=== PATIENT | male | born 1935 | race Caucasian/White ===

== ENCOUNTER 2019-09-16 08:25 | Emergency (ER) | payer MEDICARE, BC ==
[2019-09-16] MEDS ORDERED: Diltiazem 25 MG/5 ML SDV IVPUSH ONE (09:01)
[2019-09-16] MEDS ORDERED: Sodium Chloride 0.9% 1,000 ML IV ONE (09:02)
--- NOTE | 2019-09-16 17:13 | ER ---
HISTORY OF PRESENT ILLNESS: An 84-year-old male here with complaints of atrial fibrillation. He feels it started about 6 a.m. this morning. He can feel his heart racing and beating funny. The patient denies any problems with shortness of breath. He states he has been a little bit dizzy, but that has been going on for a couple of weeks and that is only with positional changes. The patient states he has had atrial fibrillation for many years. He usually takes Rythmol 300 mg t.i.d. and this has done a good job of holding him. The patient recently underwent surgery for right knee replacement a couple of weeks ago. He feels that things are going well in this area. He is not having any problems with increase of pain, fever, or redness. OBJECTIVE: GENERAL APPEARANCE: The patient is awake and alert, in no obvious distress. VITAL SIGNS: Reviewed. Initial pulse ranges from the 120s to the 140s. He is afebrile. Blood pressure 128/75, O2 sats 97%, respirations 16. HEENT: Oral mucous membranes are slightly dry. Tonsils are not enlarged or injected. Pharynx not inflamed. NECK: Supple. LUNGS: Clear. CARDIAC: Heart sounds distinct with a slightly irregular rate that is over 100 and slightly variable. SKIN: Warm and dry. INITIAL TREATMENT: An IV was started. The patient was given 500 mL of normal saline in bolus and then we reduced it down to about 100 per hour. He was given Cardizem 20 mg IV which did bring his pulse down and it was not long and he converted to normal sinus rhythm with pulse in the upper 90s. LABORATORY DATA: Labs include a CBC and basic metabolic panel, they are normal. At this point, the patient is feeling fine and has no further questions. DIAGNOSIS: Atrial fibrillation with history of the same. TREATMENT PLAN: The patient will be discharged home. He is to continue on his current medications. I did advise the patient to increase his water intake. I feel this is probably the cause of his current episode of AFib being just slightly dry. The patient agrees with the treatment plan and has no further questions. CRS/MODL /[id number]
== END 2019-09-16 10:20 | disposition home or self-care (01) ==
LOC: LB.ED 08:25
DX: I48.91 Unspecified atrial fibrillation (principal)
CPT/HCPCS: 36415; 80048; 85025; 93005; 96361; 96374; 99284; J3490; J7030

== ENCOUNTER 2020-08-08 07:07 | Inpatient (IN) | payer MEDICARE, BC ==
[2020-08-08] MEDS ORDERED: Ondansetron 4 MG/2 ML SDV IVPUSH ONE (07:37)
--- NOTE | 2020-08-08 07:38 | EDM.PDOC ---
ED HPI GENERAL MEDICAL PROBLEM - General Chief Complaint: Neurological Problem Stated Complaint: Unresponsive/Possible Stroke Time Seen by Provider: 08/08/20 07:15 Source of Information: Reports: Patient, EMS History Limitations: Reports: No Limitations - History of Present Illness INITIAL COMMENTS - FREE TEXT/NARRATIVE: patient was brought to the ER by EMS due to concerns for a stroke. He reports that he woke up this morning, and tried to clear his stuffy nose. Once he blow out his nose, he suddenly felt dizzy, ground is spinning and couldn't keep his eyes open. Had to lay down. No CP or palpitations. No weakness or numbness. He called his son who lives next door, who in return called 911. Upon arrival of the EMS to the scene, patient was alert and oriented, but c/o dizziness and nausea. no h/o stroke in the past. No speech problems. Onset: Sudden Duration: Hour(s): (1) - Related Data Home Meds: Home Meds Aspirin [Aspirin EC] 325 mg PO DAILY 08/08/20 [History] Docusate Sodium [Stool Softener] 50 mg PO DAILY 08/08/20 [History] Propafenone HCl 300 mg PO DAILY 08/08/20 [History] Sennosides/Docusate Sodium [Senna Plus 8.6-50 mg Tablet] 1 each PO DAILY PRN 08/08/20 [History] amLODIPine [Norvasc] 5 mg PO DAILY 08/08/20 [History] atorvaSTATin [Lipitor] 40 mg PO DAILY 08/08/20 [History] glyBURIDE/Metformin HCl [Glyburid-Metformin 1.25-250 mg] 1 each PO DAILY 08/08/20 [History] traMADol HCl [Tramadol HCl] 50 mg PO TID PRN 08/08/20 [History] Past Medical History HEENT History: Reports: Hard of Hearing Cardiovascular History: Reports: Afib, High Cholesterol, Stents Genitourinary History: Reports: Other (See Below) Other Genitourinary History: states that his "flow is slow" and that he has to get up at night Musculoskeletal History: Reports: Osteoarthritis Other Musculoskeletal History: recent knee replacement Other Endocrine/Metabolic History: takes metformin Dermatologic History: Reports: Other (See Below) Other Dermatologic History: Hx of basal cell carcinoma - Past Surgical History Other HEENT Surgeries/Procedures: hx of fluid in his ears saw a provider in [place] 3 yrs ago Social & Family History - Caffeine Use Caffeine Use: Reports: Coffee Caffeine Use Comment: 1 cup daily ED ROS GENERAL - Review of Systems Review Of Systems: See Below Constitutional: Reports: No Symptoms HEENT: Reports: Vertigo Respiratory: Reports: No Symptoms Cardiovascular: Reports: No Symptoms GI/Abdominal: Reports: Nausea Musculoskeletal: Reports: No Symptoms Skin: Reports: No Symptoms Neurological: Reports: Dizziness Immunologic: Reports: No Symptoms ED EXAM, NEURO - Physical Exam Exam: See Below Exam Limited By: No Limitations General Appearance: Alert, WD/WN, No Apparent Distress Eye Exam: Bilateral Eye: EOMI, PERRL Head Exam: Atraumatic, Normocephalic Respiratory/Chest: No Respiratory Distress, Lungs Clear Cardiovascular: Normal Peripheral Pulses GI/Abdominal: Normal Bowel Sounds, Soft Neurological: Alert, Normal Mood/Affect, Normal Dorsiflexion, No Motor/Sensory Deficits, Oriented x 3 Back Exam: Normal Inspection Extremities: Normal Inspection Psychiatric: Normal Affect, Normal Mood Skin Exam: Dry, No Rash #1 Interpretation EKG Date: 08/08/20 Rhythm: NSR [place]: Normal P-Wave: Present QRS: Normal ST-T: Normal QT: Normal Course - Vital Signs Last Recorded V/S: Last Vital Signs Temp 36.7 C 08/08/20 07:30 Pulse 77 08/08/20 11:51 Resp 20 08/08/20 11:51 BP 138/70 08/08/20 11:48 Pulse Ox 98 08/08/20 11:51 - Orders/Labs/Meds Orders: Active Orders 24 hr Category Date Time Status EKG Documentation Completion [RC] ASDIRECTED Care 08/08/20 07:32 Active PT Evaluation and Treatment [CONS] Routine Cons 08/08/20 11:18 Active Iodixanol [Visipaque 320] Med 08/08/20 10:00 Active 100 ml IV ASDIRECTED Sodium Chloride 0.9% [Normal Saline] 1,000 ml Med 08/08/20 07:45 Active IV ASDIRECTED Medication Orders Sodium Chloride (Normal Saline) 1,000 mls @ 999 mls/hr IV ASDIRECTED KARLA Last Admin: 08/08/20 08:20 Dose: 999 mls/hr Documented by: SHYAM Iodixanol (Iodixanol 652 Mg/Ml 100 Ml Bottle) 100 ml IV ASDIRECTED KARLA Stop: 08/08/20 23:59 Labs: Laboratory Tests 08/08/20 08/08/20 08/08/20 Range/Units 07:25 07:31 07:31 WBC 9.6 D (4.0-11.0) K/uL RBC 4.37 L (4.50-6.50) M/uL Hgb 15.0 (13.0-18.0) g/dL Hct 42.7 (40.0-54.0) % MCV 98 H (76-96) fL MCH 34.3 H (27.0-32.0) pg MCHC 35.1 H (31.0-35.0) g/dL RDW 13.5 (11.0-16.0) % Plt Count 261 D (150-400) K/uL MPV 10.6 H (6.0-10.0) fL PT 11.0 (9.0-11.5) sec INR 1.1 (1.0-3.5) Sodium (136-145) mmol/L Potassium (3.5-5.1) mmol/L Chloride (98-107) mmol/L Carbon Dioxide (21.0-32.0) mmol/L Anion Gap (5.0-15.0) mmol/L BUN (8-26) mg/dL Creatinine (0.70-1.30) mg/dL Est Cr Clr Drug Dosing Estimated GFR (MDRD) (>60) MLS/MIN BUN/Creatinine Ratio (6-25) Glucose (74-100) mg/dL POC Glucose 190 H (74-110) mg/dL Calcium (8.5-10.1) mg/dL Troponin I (0.000-0.060) ng/mL Urine Color Urine Appearance (CLEAR) Urine pH (5.0-8.0) Ur Specific [place] (1.003-1.030) Urine Protein (NEGATIVE) mg/dL Urine Glucose (UA) (NEGATIVE) mg/dL Urine Ketones (NEGATIVE) mg/dL Urine Occult Blood (NEGATIVE) Urine Nitrite (NEGATIVE) Urine Bilirubin (NEGATIVE) Urine Urobilinogen (0.2-1.0) E.U./dL Ur Leukocyte Esterase (NEGATIVE) Urine RBC /HPF Urine WBC /HPF Ur Epithelial Cells /HPF 08/08/20 08/08/20 Range/Units 07:31 07:50 WBC (4.0-11.0) K/uL RBC (4.50-6.50) M/uL Hgb (13.0-18.0) g/dL Hct (40.0-54.0) % MCV (76-96) fL MCH (27.0-32.0) pg MCHC (31.0-35.0) g/dL RDW (11.0-16.0) % Plt Count (150-400) K/uL MPV (6.0-10.0) fL PT (9.0-11.5) sec INR (1.0-3.5) Sodium 145 (136-145) mmol/L Potassium 4.2 (3.5-5.1) mmol/L Chloride 109 H (98-107) mmol/L Carbon Dioxide 23.9 (21.0-32.0) mmol/L Anion Gap 16.3 H (5.0-15.0) mmol/L BUN 17 (8-26) mg/dL Creatinine 1.24 (0.70-1.30) mg/dL Est Cr Clr Drug Dosing TNP Estimated GFR (MDRD) 56 L (>60) MLS/MIN BUN/Creatinine Ratio 13.7 (6-25) Glucose 187 H (74-100) mg/dL POC Glucose (74-110) mg/dL Calcium 8.8 (8.5-10.1) mg/dL Troponin I < 0.017 (0.000-0.060) ng/mL Urine Color Yellow Urine Appearance Clear (CLEAR) Urine pH 5.5 (5.0-8.0) Ur Specific [place] 1.025 (1.003-1.030) Urine Protein Negative (NEGATIVE) mg/dL Urine Glucose (UA) Negative (NEGATIVE) mg/dL Urine Ketones Negative (NEGATIVE) mg/dL Urine Occult Blood Trace-intact H (NEGATIVE) Urine Nitrite Negative (NEGATIVE) Urine Bilirubin Negative (NEGATIVE) Urine Urobilinogen 0.2 (0.2-1.0) E.U./dL Ur Leukocyte Esterase Negative (NEGATIVE) Urine RBC 0-5 H /HPF Urine WBC Not seen /HPF Ur Epithelial Cells Few /HPF Meds: Medications Generic Name Dose Route Start Last Admin Trade Name Goldy PRN Reason Stop Dose Admin Sodium Chloride 1,000 mls @ 999 mls/hr 08/08/20 07:45 08/08/20 08:20 Normal Saline IV 999 mls/hr ASDIRECTED KARLA Administration Iodixanol 100 ml 08/08/20 10:00 Iodixanol 652 Mg/Ml 100 Ml Bottle IV 08/08/20 23:59 ASDIRECTED KARLA Discontinued Medications Generic Name Dose Route Start Last Admin Trade Name Goldy PRN Reason Stop Dose Admin Aspirin 325 mg 08/08/20 08:55 08/08/20 11:38 Aspirin 325 Mg Tab.Ec PO 08/08/20 08:56 325 mg ONETIME ONE Administration Diphenhydramine HCl 50 mg 08/08/20 09:09 08/08/20 09:18 Diphenhydramine 50 Mg/Ml Sdv IVPUSH 08/08/20 09:10 50 mg ONETIME ONE Administration Diphenhydramine HCl Confirm 08/08/20 09:23 Diphenhydramine 50 Mg/Ml Sdv Administered 08/08/20 09:24 Dose 50 mg .ROUTE .STK-MED ONE Iodixanol 100 ml 08/08/20 09:00 08/08/20 08:53 Iodixanol 652 Mg/Ml 100 Ml Bottle IV 100 ml . DIRECTED KARLA Administration Lorazepam 0.5 mg 08/08/20 09:09 08/08/20 09:18 Lorazepam 2 Mg/Ml Sdv IVPUSH 08/08/20 09:10 0.5 mg ONETIME ONE Administration Lorazepam Confirm 08/08/20 09:23 Lorazepam 2 Mg/Ml Sdv Administered 08/08/20 09:24 Dose 2 mg .ROUTE .STK-MED ONE Meclizine HCl 25 mg 08/08/20 07:47 08/08/20 08:24 Meclizine 25 Mg Tab.Chew PO 08/08/20 07:48 25 mg NOW STA Administration Meclizine HCl Confirm 08/08/20 08:32 Meclizine 25 Mg Tab.Chew Administered 08/08/20 08:33 Dose 25 mg .ROUTE .STK-MED ONE Meclizine HCl 25 mg 08/08/20 11:17 08/08/20 11:37 Meclizine 25 Mg Tab.Chew PO 08/08/20 11:18 25 mg NOW STA Administration Meclizine HCl Confirm 08/08/20 11:25 Meclizine 25 Mg Tab.Chew Administered 08/08/20 11:26 Dose 25 mg .ROUTE .STK-MED ONE Ondansetron HCl 4 mg 08/08/20 07:37 08/08/20 07:47 Ondansetron 4 Mg/2 Ml Sdv IVPUSH 08/08/20 07:38 4 mg ONETIME ONE Administration Sodium Chloride 50 ml 08/08/20 08:51 08/08/20 08:53 Sodium Chloride 0.9% 50 Ml Sdv FLUSH 08/08/20 08:52 50 ml ONETIME ONE Administration - Re-Assessments/Exams Free Text/Narrative Re-Assessment/Exam: vitals WNL.. clinical exam - shows no motor or sensory deficit. motor strength 5/5,, no speech or vision problems. CT head w/wo contrast was done -- no e/o stroke or bleeding. symptoms are possibly vestibular in origin - was given meclizine 5mg, as well as, Ativan and Benadryl. Reports improvement in symptoms and no more dizzy when lying still, but still re experience the symptoms when turn his face sideways. discussed the case with the stroke neurologist in [place] - Dr. Ferreira - who didn't think his symptoms are stroke, more likely vestibular. Recommended to treat the patient symptomatically, start blood thinners and in- house PT. Also will arrange for an MRI during the admission. Departure - Departure Time of Disposition: 12:33 Disposition: Admitted As Inpatient 66 Condition: Good Clinical Impression: Dizziness, Vertigo - Discharge Information *PRESCRIPTION DRUG MONITORING PROGRAM REVIEWED*: Not Applicable *COPY OF PRESCRIPTION DRUG MONITORING REPORT IN PATIENT HILARIO: Not Applicable Forms: ED Department Discharge Sepsis Event Note (ED) - Focused Exam Vital Signs: Vital Signs Temp Pulse Resp BP Pulse Ox 08/08/20 11:51 77 20 98 08/08/20 11:48 72 18 138/70 97 08/08/20 08:36 62 16 148/76 H 95 08/08/20 07:30 36.7 C 64 20 156/78 H 99 - Problem List & Annotations (1) Dizziness SNOMED Code(s): 234188839, 865342107 Code(s): R42 - DIZZINESS AND GIDDINESS Status: Acute Priority: Medium Current Visit: Yes (2) Vertigo SNOMED Code(s): 498375480 Code(s): R42 - DIZZINESS AND GIDDINESS Status: Acute Priority: Medium Current Visit: Yes - Problem List Review Problem List Initiated/Reviewed/Updated: Yes - My Orders Last 24 Hours: My Active Orders 08/08/20 07:32 EKG Documentation Completion [RC] ASDIRECTED 08/08/20 07:45 Sodium Chloride 0.9% [Normal Saline] 1,000 ml IV ASDIRECTED 08/08/20 10:00 Iodixanol [Visipaque 320] 100 ml IV ASDIRECTED 08/08/20 11:18 PT Evaluation and Treatment [CONS] Routine - Assessment/Plan Last 24 Hours: My Active Orders 08/08/20 07:32 EKG Documentation Completion [RC] ASDIRECTED 08/08/20 07:45 Sodium Chloride 0.9% [Normal Saline] 1,000 ml IV ASDIRECTED 08/08/20 10:00 Iodixanol [Visipaque 320] 100 ml IV ASDIRECTED 08/08/20 11:18 PT Evaluation and Treatment [CONS] Routine Plan: - admission to IP: h/o HRN and Afib - controlled. not on blood thinners. 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
[2020-08-08] MEDS ORDERED: Sodium Chloride 0.9% 1,000 ML IV SCH (07:45)
--- NOTE | 2020-08-08 08:45 | CT ---
DATE OF SERVICE: 08/08/2020 CLINICAL DATA: Dizziness Unenhanced and enhanced brain CT: Multi slice acquisition without and with IV contrast was performed. No priors. There is diffuse atrophy. There are periventricular lucencies bilaterally consistent with small vessel ischemic change. No masses or mass effect. No intracranial hemorrhage. No evidence of acute or subacute infarct. No osseous abnormalities. Impression: No acute intracranial abnormalities MTDD
[2020-08-08] MEDS ORDERED: Sodium Chloride 0.9% 50 ML SDV FLUSH ONE (08:51)
[2020-08-08] MEDS: Aspirin 325 MG Tab.EC PO ONE ×2 (08:55→11:38)
[2020-08-08] MEDS ORDERED: Iodixanol 652 MG/ML 100 ML Bottle IV SCH ×2 (09:00→10:00)
[2020-08-08] MEDS ORDERED: diphenhydrAMINE 50 MG/ML SDV IVPUSH ONE (09:09)
[2020-08-08] MEDS ORDERED: LORazepam 2 MG/ML SDV IVPUSH ONE (09:09)
[2020-08-08] MEDS ORDERED: LORazepam 2 MG/ML SDV ONE (09:23)
[2020-08-08] MEDS ORDERED: diphenhydrAMINE 50 MG/ML SDV ONE (09:23)
[2020-08-08] MEDS ORDERED: Ondansetron 4 MG/2 ML SDV ONE (14:38)
[2020-08-08] MEDS: Ondansetron 4 MG Tab.DIS PO PRN ×2 (14:40→22:39)
[2020-08-08] MEDS: amLODIPine 5 MG Tab PO SCH (14:56)
[2020-08-08] MEDS: Apixaban 5 MG Tab PO SCH ×2 (14:57→20:02)
[2020-08-08] MEDS: PROPAFENONE HCL 300 MG PO SCH (14:58)
[2020-08-08] MEDS: Metoprolol Tartrate 25 MG Tab PO SCH ×2 (16:08→19:18)
[2020-08-08] MEDS ORDERED: GI Cocktail Oral Solution 30 ML PO ONE (16:43)
[2020-08-08] MEDS ORDERED: Metoprolol Tartrate 5 MG/5 ML SDV IVPUSH ONE (17:41)
[2020-08-08] MEDS: atorvaSTATin 40 MG Tab PO SCH (17:46)
[2020-08-08] MEDS ORDERED: Diltiazem 25 MG/5 ML SDV IVPUSH ONE ×2 (19:51→21:16)
[2020-08-08] MEDS: Sodium Chloride 0.9% 1,000 ML IV SCH (21:54)
[2020-08-08] MEDS: Diltiazem 100 MG in Sodium Chloride 0.9% 100 ML IV SCH (22:32)
[2020-08-09] MEDS: Ondansetron 4 MG Tab.DIS PO PRN (04:25)
[2020-08-09] MEDS: Sodium Chloride 0.9% 1,000 ML IV SCH ×2 (04:25→12:05)
[2020-08-09] MEDS: Diltiazem 100 MG in Sodium Chloride 0.9% 100 ML IV SCH (06:26)
[2020-08-09] MEDS ORDERED: Aspirin 81 MG Tab.EC PO SCH (08:00)
[2020-08-09] MEDS ORDERED: Pantoprazole 40 MG Vial IVPUSH SCH (08:00)
[2020-08-09] MEDS ORDERED: DOCUSATE SODIUM 50 MG PO SCH (08:00)
[2020-08-09] MEDS: metFORMIN 500 MG Tab PO SCH (08:06)
[2020-08-09] MEDS: glyBURIDE 5 MG Tab PO SCH (08:08)
[2020-08-09] MEDS: PROPAFENONE HCL 300 MG PO SCH (08:09)
[2020-08-09] MEDS: atorvaSTATin 40 MG Tab PO SCH ×3 (08:10→20:51)
[2020-08-09] MEDS: Aspirin 81 MG Tab.EC PO SCH ×3 (08:10→20:50)
[2020-08-09] MEDS: Docusate Sodium 100 MG Cap PO SCH ×2 (08:10→08:31)
[2020-08-09] MEDS: Apixaban 5 MG Tab PO SCH ×2 (08:10→20:51)
[2020-08-09] MEDS: amLODIPine 5 MG Tab PO SCH (08:10)
[2020-08-09] MEDS: Metoprolol Tartrate 25 MG Tab PO SCH (08:11)
[2020-08-09] MEDS ORDERED: Metoprolol Tartrate 25 MG Tab PO SCH (09:00)
--- NOTE | 2020-08-09 09:03 | PCM.HP.2 ---
H&P History of Present Illness - General Date of Service: 08/09/20 Admit Problem/Dx: Admission Diagnosis/Problem Admission Diagnosis/Problem Dizziness Source of Information: Patient History Limitations: Reports: No Limitations - History of Present Illness Initial Comments - Free Text/Narative: patient was admitted from the ER to the floor due to concerns for severe dizziness and severe nausea. He reports that he woke up this morning, and tried to clear his stuffy nose. Once he blow out his nose, he suddenly felt dizzy, ground is spinning and couldn't keep his eyes open. Had to lay down. No CP or palpitations. No weakness or numbness. He called his son who lives next door, who in return called 911. Upon arrival of the EMS to the scene, patient was alert and oriented, but c/o dizziness and nausea. no h/o stroke in the past. In the ER, he underwent CT head w/wo contrast - no e/o acute ischemia. EKG initially showed NSR - thou patient has a h/o afib for which he is on rate and rhythm control medications but no anti coagulation. His baseline is complete independence at home where he can move around without problems but today, he is unable to move around or even get out of the bed due to dizziness. labs were ordered - no significant findings. IVF was given, discussed the case with the stroke neurologist call center dispatcher - who didn't think it is a CVA given the normal CT findings - but recommended to start blood thinners due to h/o afib and to arrange for an MRI head. Patient was admitted to the floor due to high risk of fall and to start therapy. - Related Data Allergies/Adverse Reactions: Allergies Allergy/AdvReac Type Severity Reaction Status Date / Time No Known Allergies Allergy Verified 08/08/20 14:32 Home Medications: Home Meds Aspirin [Halfprin] 81 mg PO BID 08/08/20 [History] Docusate Sodium [Stool Softener] 50 mg PO DAILY 08/08/20 [History] Metoprolol Tartrate 25 mg PO BID 08/08/20 [History] Propafenone HCl 300 mg PO TID 08/08/20 [History] amLODIPine [Norvasc] 5 mg PO DAILY 08/08/20 [History] atorvaSTATin [Lipitor] 40 mg PO DAILY 08/08/20 [History] glyBURIDE/Metformin HCl [Glyburid-Metformin 1.25-250 mg] 1 each PO DAILY 08/08/20 [History] traMADol HCl [Tramadol HCl] 50 mg PO TID PRN 08/08/20 [History] Past Medical History HEENT History: Reports: Hard of Hearing Cardiovascular History: Reports: Afib, High Cholesterol, Stents Genitourinary History: Reports: Other (See Below) Other Genitourinary History: states that his "flow is slow" and that he has to get up at night Musculoskeletal History: Reports: Osteoarthritis Other Musculoskeletal History: recent knee replacement Other Endocrine/Metabolic History: takes metformin Dermatologic History: Reports: Other (See Below) Other Dermatologic History: Hx of basal cell carcinoma - Past Surgical History Other HEENT Surgeries/Procedures: hx of fluid in his ears saw a provider in [place] 3 yrs ago Social & Family History - Tobacco Use Tobacco Use Status *Q: Never Tobacco User - Caffeine Use Caffeine Use: Reports: Coffee Caffeine Use Comment: 1 cup daily H&P Review of Systems - Review of Systems: Review Of Systems: See Below General: Reports: No Symptoms HEENT: Reports: No Symptoms Pulmonary: Reports: No Symptoms Cardiovascular: Reports: No Symptoms Gastrointestinal: Reports: Nausea Genitourinary: Reports: No Symptoms Musculoskeletal: Reports: No Symptoms Skin: Reports: No Symptoms Psychiatric: Reports: No Symptoms Neurological: Reports: Dizziness Exam - Exam Exam: See Below - Vital Signs Vital Signs: Last Vital Signs Temp 37.1 C 08/09/20 06:48 Pulse 77 08/09/20 08:11 Resp 16 08/09/20 05:08 BP 120/57 L 08/09/20 08:11 Pulse Ox 95 08/09/20 04:00 Weight: 88.904 kg - Exam General: Alert, Oriented, Cooperative HEENT: PERRLA, Conjunctiva Clear Neck: Supple Lungs: Clear to Auscultation, Normal Respiratory Effort Cardiovascular: Irregular Rhythm, Tachycardia GI/Abdominal Exam: Normal Bowel Sounds, Soft, Non-Tender Back Exam: Full Range of Motion Extremities: Normal Inspection, Normal Range of Motion Neurological: Cranial Nerves Intact, Strength Equal Bilateral, Normal Speech, Sensation Intact. No: Focal Deficit Neuro Extensive - Mental Status: Alert, Oriented x3, Normal Mood/Affect, Normal Cognition, Memory Intact Neuro Extensive - Motor, Sensory, Reflexes: No: Dysarthria, Facial Palsy w Forehead, Pronator Drift (R), Pronator Drift (L) Psychiatric: Alert, Normal Affect, Normal Mood - Patient Data Lab Results Last 24 hrs: Laboratory Results - last 24 hr 08/08/20 Range/Units 15:02 SARS-CoV-2 RNA (GREY) Negative (NEGATIVE) Result Diagrams: 08/09/20 09:13 08/09/20 09:13 #1 Interpretation EKG Date: 08/08/20 Rhythm: A-Fib [place]: Normal P-Wave: Absent QRS: Normal ST-T: Normal QT: Normal Sepsis Event Note - Evaluation Sepsis Screening Result: No Definite Risk - Focused Exam Vital Signs: Vital Signs Temp Pulse Pulse Resp BP BP BP 08/09/20 08:11 77 120/57 L 08/09/20 08:10 120/57 L 08/09/20 06:48 37.1 C 99 120/70 08/09/20 05:08 89 16 116/57 L 08/09/20 04:00 96 16 127/63 08/09/20 03:31 93 18 128/64 08/09/20 02:30 110 H 18 140/83 08/09/20 01:30 99 129/77 08/09/20 00:39 114 H 16 120/70 Pulse Ox 08/09/20 08:11 08/09/20 08:10 08/09/20 06:48 08/09/20 05:08 08/09/20 04:00 95 08/09/20 03:31 96 08/09/20 02:30 98 08/09/20 01:30 08/09/20 00:39 - Problem List (1) Dizziness SNOMED Code(s): 613304461, 076723150 ICD Code: R42 - DIZZINESS AND GIDDINESS Status: Acute Priority: Medium Current Visit: Yes (2) Afib SNOMED Code(s): 80229929 ICD Code: I48.91 - UNSPECIFIED ATRIAL FIBRILLATION Status: Acute Priority: Low Current Visit: Yes Qualifiers: Atrial fibrillation type: paroxysmal Qualified Code(s): I48.0 - Paroxysmal atrial fibrillation Problem List Initiated/Reviewed/Updated: Yes Orders Last 24hrs: Active Orders 24 hr Category Date Time Status Admission Diagnosis [ADT] Stat ADT 08/08/20 12:37 Active Admission Status [Patient Status] [ADT] Routine ADT 08/08/20 12:37 Active Cardiac Monitoring [RC] .As Directed Care 08/08/20 17:45 Active Intake and Output Strict [RC] Care 08/09/20 03:21 Active Oxygen Therapy [RC] PRN Care 08/08/20 12:57 Active Up With Assistance [RC] ASDIRECTED Care 08/08/20 12:57 Active Urinary Catheter Assessment [RC] Care 08/08/20 12:57 Active VTE/DVT Education [RC] Per Unit Routine Care 08/08/20 12:57 Active Vital Signs [RC] Q4H Care 08/08/20 12:57 Active PT Evaluation and Treatment [CONS] Routine Cons 08/08/20 11:18 Active Regular Diet [DIET] Diet 08/08/20 Dinner Ordered CBC W/O DIFF,HEMOGRAM [HEME] Routine Lab 08/09/20 09:00 Ordered COMPREHENSIVE METABOLIC PN,CMP [CHEM] Routine Lab 08/09/20 09:00 Ordered CULTURE MRSA SURVEY [RM] Routine Lab 08/08/20 14:11 Received LIPASE [CHEM] Routine Lab 08/09/20 09:00 Ordered TROPONIN I [CHEM] Routine Lab 08/09/20 09:00 Ordered Apixaban [Eliquis] Med 08/08/20 13:00 Active 5 mg PO BID Aspirin [Halfprin] Med 08/09/20 20:00 Ordered 81 mg PO BID Diltiazem [Cardizem] 100 mg Med 08/08/20 22:00 Active Sodium Chloride 0.9% [Normal Saline] 100 ml IV TITRATE Docusate Sodium [Colace] Med 08/09/20 08:00 Active 100 mg PO DAILY Docusate Sodium/Sennosides [Senna Plus] Med 08/08/20 13:01 Active 1 tab PO DAILY PRN Meclizine [Antivert] Med 08/08/20 17:00 Active 25 mg PO TID Metoprolol Tartrate [Lopressor] Med 08/09/20 09:00 Ordered 50 mg PO BID Ondansetron [Zofran ODT] Med 08/08/20 14:34 Active 4 mg PO Q6H PRN Prochlorperazine [Compazine] Med 08/09/20 08:58 Ordered 10 mg PO Q6H PRN Propafenone HCl [Propafenone HCl] Med 08/08/20 13:15 Active 300 mg PO DAILY Sodium Chloride 0.9% [Normal Saline] 1,000 ml Med 08/08/20 22:00 Active IV ASDIRECTED amLODIPine [Norvasc] Med 08/08/20 13:15 Active 5 mg PO DAILY atorvaSTATin [Lipitor] Med 08/09/20 20:00 Ordered 40 mg PO BEDTIME diphenhydrAMINE [Benadryl] Med 08/09/20 09:01 Ordered 25 mg PO Q4H PRN glyBURIDE [Micronase] Med 08/09/20 08:00 Active 1.25 mg PO DAILY metFORMIN [Glucophage] Med 08/09/20 08:00 Active 250 mg PO DAILY traMADol [Ultram] Med 08/08/20 13:01 Active 50 mg PO TID PRN Resuscitation Status Routine Resus Stat 08/08/20 12:57 Ordered Medication Orders Amlodipine Besylate (Amlodipine 5 Mg Tab) 5 mg PO DAILY [facility] Last Admin: 08/09/20 08:10 Dose: 5 mg Documented by: Admin: 08/08/20 14:56 Dose: 5 mg Documented by: EVENS Apixaban (Apixaban 5 Mg Tab) 5 mg PO BID [facility] Last Admin: 08/09/20 08:10 Dose: 5 mg Documented by: Admin: 08/08/20 20:02 Dose: 5 mg Documented by: Admin: 08/08/20 14:57 Dose: 5 mg Documented by: EVENS Aspirin (Aspirin 81 Mg Tab.Ec) 81 mg PO BID [facility] Atorvastatin Calcium (Atorvastatin 40 Mg Tab) 40 mg PO BEDTIME [facility] Diphenhydramine HCl (Diphenhydramine 25 Mg Cap) 25 mg PO Q4H PRN PRN Reason: Dizziness Docusate Sodium (Docusate Sodium 100 Mg Cap) 100 mg PO DAILY [facility] Last Admin: 08/09/20 08:31 Dose: Not Given Documented by: KEVIN Glyburide (Glyburide 5 Mg Tab) 1.25 mg PO DAILY [facility] Last Admin: 08/09/20 08:08 Dose: 1.25 mg Documented by: KEVIN Sodium Chloride (Normal Saline) 1,000 mls @ 150 mls/hr IV ASDIRECTED [facility] Last Admin: 08/09/20 04:25 Dose: 150 mls/hr Documented by: Infusion: 08/09/20 04:25 Dose: 150 mls/hr Documented by: Admin: 08/08/20 21:54 Dose: 150 mls/hr Documented by: YARA Diltiazem HCl 100 mg/ Sodium (Chloride) 100 mls @ 5 mls/hr IV TITRATE KARLA; Protocol Last Admin: 08/09/20 06:26 Dose: 15 mg/hr, 15 mls/hr Documented by: Titration: 08/09/20 06:26 Dose: 15 mg/hr, 15 mls/hr Documented by: Titration: 08/09/20 02:34 Dose: 15 mg/hr, 15 mls/hr Documented by: Titration: 08/08/20 23:38 Dose: 10 mg/hr, 10 mls/hr Documented by: Admin: 08/08/20 22:32 Dose: 5 mg/hr, 5 mls/hr Documented by: YARA Meclizine HCl (Meclizine 25 Mg Tab.Chew) 25 mg PO TID [facility] Last Admin: 08/09/20 08:09 Dose: 25 mg Documented by: Admin: 08/08/20 20:02 Dose: 25 mg Documented by: Admin: 08/08/20 16:32 Dose: 25 mg Documented by: EVENS Metformin HCl (Metformin 500 Mg Tab) 250 mg PO DAILY [facility] Last Admin: 08/09/20 08:06 Dose: 250 mg Documented by: KEVIN Metoprolol Tartrate (Metoprolol Tartrate 25 Mg Tab) 50 mg PO BID [facility] Non-Formulary Medication (Propafenone Hcl [Propafenone Hcl]) 300 mg PO DAILY [facility] Last Admin: 08/09/20 08:09 Dose: 300 mg Documented by: Admin: 08/08/20 14:58 Dose: 300 mg Documented by: EVENS Ondansetron HCl (Ondansetron 4 Mg Tab.Dis) 4 mg PO Q6H PRN PRN Reason: Nausea/Vomiting Last Admin: 08/09/20 04:25 Dose: 4 mg Documented by: Admin: 08/08/20 22:39 Dose: 4 mg Documented by: Admin: 08/08/20 14:40 Dose: 4 mg Documented by: EVENS Prochlorperazine Maleate (Prochlorperazine 10 Mg Tab) 10 mg PO Q6H PRN PRN Reason: Nausea/Vomiting Senna/Docusate Sodium (Docusate Sodium/Sennosides 50-8.6 Mg Tab) 1 tab PO DAILY PRN PRN Reason: Constipation Tramadol HCl (Tramadol 50 Mg Tab) 50 mg PO TID PRN PRN Reason: Pain Assessment/Plan Comment:: 1- for afib - will continue with propafenone class Ic anti Arrhythmic drug 300mg daily as before - might increase as needed. Will increase current dose of metoprolol to 50mg BID. Eliquid BID Tele bed vitals signs frequent check electrolytes check 2- for Dizziness: will arrange for MRI head on Meclizine scheduled dose Zofran for nausea high fall risk - required nursing bed side assistance. Herbert for Is/Os due to high risk of fall and dizziness 3- Other medical conditions: resuming home meds as before - Mortality Measure Prognosis:: Good
[2020-08-09] MEDS ORDERED: Pantoprazole 80 MG in Sodium Chloride 0.9% 100 ML IV ONE (10:01)
[2020-08-09] MEDS ORDERED: Metoprolol Tartrate 25 MG Tab ONE (10:05)
[2020-08-09] MEDS: Prochlorperazine 10 MG Tab PO PRN ×2 (10:18→17:00)
[2020-08-09] MEDS: diphenhydrAMINE 25 MG Cap PO PRN ×3 (10:18→20:51)
[2020-08-09] MEDS ORDERED: Metoprolol Tartrate 25 MG Tab PO ONE (10:20)
[2020-08-09] MEDS: traMADol 50 MG Tab PO PRN (17:00)
[2020-08-09] MEDS: Metoprolol Tartrate 50 MG Tab PO SCH (20:51)
[2020-08-10] MEDS: Aspirin 81 MG Tab.EC PO SCH ×2 (08:11→19:50)
[2020-08-10] MEDS: Docusate Sodium 100 MG Cap PO SCH (08:11)
[2020-08-10] MEDS: metFORMIN 500 MG Tab PO SCH (08:12)
[2020-08-10] MEDS: glyBURIDE 5 MG Tab PO SCH (08:12)
[2020-08-10] MEDS: amLODIPine 5 MG Tab PO SCH (08:14)
[2020-08-10] MEDS: Apixaban 5 MG Tab PO SCH ×2 (08:14→19:49)
[2020-08-10] MEDS: PROPAFENONE HCL 300 MG PO SCH ×3 (08:14→19:32)
[2020-08-10] MEDS: Metoprolol Tartrate 50 MG Tab PO SCH ×2 (08:16→19:49)
[2020-08-10] MEDS ORDERED: Metoprolol Tartrate 50 MG Tab PO SCH (10:00)
--- NOTE | 2020-08-10 10:05 | PCM.PN ---
- General Info Date of Service: 08/10/20 Admission Dx/Problem (Free Text): Admission Diagnosis/Problem Admission Diagnosis/Problem Dizziness Subjective Update: still feeling dizzy when moving head.. Nausea has improved significantly and is tolerating diet. IVF was stopped last night Functional Status: Reports: Pain Controlled, Tolerating Diet. Denies: Ambulating - Review of Systems General: Reports: No Symptoms HEENT: Reports: No Symptoms Pulmonary: Reports: No Symptoms Cardiovascular: Reports: No Symptoms Gastrointestinal: Reports: No Symptoms Musculoskeletal: Reports: No Symptoms Skin: Reports: No Symptoms Neurological: Reports: Dizziness Psychiatric: Reports: No Symptoms - Patient Data Vitals - Most Recent: Last Vital Signs Temp 36.8 C 08/10/20 06:00 Pulse 110 H 08/10/20 08:16 Resp 16 08/10/20 06:00 BP 135/85 08/10/20 08:16 Pulse Ox 98 08/10/20 06:00 Weight - Most Recent: 88.904 kg I&O - Last 24 Hours: Intake & Output 08/09/20 08/10/20 08/10/20 22:59 06:59 14:59 Intake Total 2905 200 Output Total 65 600 Balance 226; -400 Cholo Results Last 24 Hours: Microbiology 08/08/20 14:11 MRSA Surveillance Culture - Final Nares, Unspecified NO MRSA ISOLATED Med Orders - Current: Current Medications Amlodipine Besylate (Amlodipine 5 Mg Tab) 5 mg PO DAILY [facility] Last Admin: 08/10/20 08:14 Dose: 5 mg Documented by: Apixaban (Apixaban 5 Mg Tab) 5 mg PO BID [facility] Last Admin: 08/10/20 08:14 Dose: 5 mg Documented by: Aspirin (Aspirin 81 Mg Tab.Ec) 81 mg PO BID [facility] Last Admin: 08/10/20 08:11 Dose: 81 mg Documented by: Atorvastatin Calcium (Atorvastatin 40 Mg Tab) 40 mg PO BEDTIME [facility] Last Admin: 08/09/20 20:51 Dose: 40 mg Documented by: Diphenhydramine HCl (Diphenhydramine 25 Mg Cap) 25 mg PO Q4H PRN PRN Reason: Dizziness Last Admin: 08/09/20 20:51 Dose: 25 mg Documented by: Docusate Sodium (Docusate Sodium 100 Mg Cap) 100 mg PO DAILY [facility] Last Admin: 08/10/20 08:11 Dose: 100 mg Documented by: Glyburide (Glyburide 5 Mg Tab) 1.25 mg PO DAILY [facility] Last Admin: 08/10/20 08:12 Dose: 1.25 mg Documented by: Meclizine HCl (Meclizine 25 Mg Tab.Chew) 25 mg PO TID [facility] Last Admin: 08/10/20 08:11 Dose: 25 mg Documented by: Metformin HCl (Metformin 500 Mg Tab) 250 mg PO DAILY [facility] Last Admin: 08/10/20 08:12 Dose: 250 mg Documented by: Metoprolol Tartrate (Metoprolol Tartrate 50 Mg Tab) 100 mg PO BID [facility] Non-Formulary Medication (Propafenone Hcl [Propafenone Hcl]) 300 mg PO DAILY [facility] Last Admin: 08/10/20 08:14 Dose: 300 mg Documented by: Ondansetron HCl (Ondansetron 4 Mg Tab.Dis) 4 mg PO Q6H PRN PRN Reason: Nausea/Vomiting Last Admin: 08/09/20 04:25 Dose: 4 mg Documented by: Prochlorperazine Maleate (Prochlorperazine 10 Mg Tab) 10 mg PO Q6H PRN PRN Reason: Nausea/Vomiting Last Admin: 08/09/20 17:00 Dose: 10 mg Documented by: Senna/Docusate Sodium (Docusate Sodium/Sennosides 50-8.6 Mg Tab) 1 tab PO DAILY PRN PRN Reason: Constipation Tramadol HCl (Tramadol 50 Mg Tab) 50 mg PO TID PRN PRN Reason: Pain Last Admin: 08/09/20 17:00 Dose: 50 mg Documented by: Discontinued Medications Al Hydroxide/Mg Hydroxide (Gi Cocktail Oral Solution 30 Ml) 30 ml PO ONETIME ONE Stop: 08/08/20 16:44 Last Admin: 08/08/20 19:50 Dose: Not Given Documented by: Aspirin (Aspirin 325 Mg Tab.Ec) 325 mg PO ONETIME ONE Stop: 08/08/20 08:56 Last Admin: 08/08/20 11:38 Dose: 325 mg Documented by: Aspirin (Aspirin 81 Mg Tab.Ec) 162 mg PO DAILY [facility] Last Admin: 08/09/20 08:32 Dose: 81 mg Documented by: Aspirin (Aspirin 81 Mg Tab.Ec) 81 mg PO BID [facility] Atorvastatin Calcium (Atorvastatin 40 Mg Tab) 40 mg PO DAILY [facility] Last Admin: 08/09/20 08:34 Dose: Not Given Documented by: Diltiazem HCl (Diltiazem 25 Mg/5 Ml Sdv) 10 mg IVPUSH ONETIME ONE Stop: 08/08/20 19:52 Last Admin: 08/08/20 20:07 Dose: 10 mg Documented by: Diltiazem HCl (Diltiazem 25 Mg/5 Ml Sdv) 15 mg IVPUSH ONETIME ONE Stop: 08/08/20 21:17 Last Admin: 08/08/20 21:23 Dose: 15 mg Documented by: Diphenhydramine HCl (Diphenhydramine 50 Mg/Ml Sdv) 50 mg IVPUSH ONETIME ONE Stop: 08/08/20 09:10 Last Admin: 08/08/20 09:18 Dose: 50 mg Documented by: Diphenhydramine HCl (Diphenhydramine 50 Mg/Ml Sdv) Confirm Administered Dose 50 mg .ROUTE .STK-MED ONE Stop: 08/08/20 09:24 Last Admin: 08/08/20 14:59 Dose: Not Given Documented by: Sodium Chloride (Normal Saline) 1,000 mls @ 999 mls/hr IV ASDIRECTED KARLA Last Admin: 08/08/20 08:20 Dose: 999 mls/hr Documented by: Sodium Chloride (Normal Saline) 1,000 mls @ 150 mls/hr IV ASDIRECTED KARLA Last Admin: 08/09/20 12:05 Dose: 150 mls/hr Documented by: Diltiazem HCl 100 mg/ Sodium (Chloride) 100 mls @ 5 mls/hr IV TITRATE KARLA; Protocol Last Titration: 08/09/20 17:30 Dose: Infused Documented by: Iodixanol (Iodixanol 652 Mg/Ml 100 Ml Bottle) 100 ml IV . DIRECTED KARLA Last Admin: 08/08/20 08:53 Dose: 100 ml Documented by: Iodixanol (Iodixanol 652 Mg/Ml 100 Ml Bottle) 100 ml IV ASDIRECTED KARLA Stop: 08/08/20 23:59 Lorazepam (Lorazepam 2 Mg/Ml Sdv) 0.5 mg IVPUSH ONETIME ONE Stop: 08/08/20 09:10 Last Admin: 08/08/20 09:18 Dose: 0.5 mg Documented by: Lorazepam (Lorazepam 2 Mg/Ml Sdv) Confirm Administered Dose 2 mg .ROUTE .STK-MED ONE Stop: 08/08/20 09:24 Last Admin: 08/08/20 14:59 Dose: Not Given Documented by: Meclizine HCl (Meclizine 25 Mg Tab.Chew) 25 mg PO NOW STA Stop: 08/08/20 07:48 Last Admin: 08/08/20 08:24 Dose: 25 mg Documented by: Meclizine HCl (Meclizine 25 Mg Tab.Chew) Confirm Administered Dose 25 mg .ROUTE .STK-MED ONE Stop: 08/08/20 08:33 Last Admin: 08/08/20 14:59 Dose: Not Given Documented by: Meclizine HCl (Meclizine 25 Mg Tab.Chew) 25 mg PO NOW STA Stop: 08/08/20 11:18 Last Admin: 08/08/20 11:37 Dose: 25 mg Documented by: Meclizine HCl (Meclizine 25 Mg Tab.Chew) Confirm Administered Dose 25 mg .ROUTE .STK-MED ONE Stop: 08/08/20 11:26 Last Admin: 08/08/20 14:59 Dose: Not Given Documented by: Metoprolol Tartrate (Metoprolol Tartrate 25 Mg Tab) 25 mg PO BID [facility] Last Admin: 08/09/20 08:11 Dose: 25 mg Documented by: Metoprolol Tartrate (Metoprolol Tartrate 5 Mg/5 Ml Sdv) 5 mg IVPUSH ONETIME ONE Stop: 08/08/20 17:42 Last Admin: 08/08/20 17:46 Dose: 5 mg Documented by: Metoprolol Tartrate (Metoprolol Tartrate 50 Mg Tab) 50 mg PO BID [facility] Last Admin: 08/10/20 08:16 Dose: 50 mg Documented by: Metoprolol Tartrate (Metoprolol Tartrate 25 Mg Tab) Confirm Administered Dose 25 mg .ROUTE .STK-MED ONE Stop: 08/09/20 10:06 Last Admin: 08/09/20 10:23 Dose: Not Given Documented by: Metoprolol Tartrate (Metoprolol Tartrate 25 Mg Tab) 25 mg PO ONETIME ONE Stop: 08/09/20 10:21 Last Admin: 08/09/20 10:27 Dose: 25 mg Documented by: Non-Formulary Medication (Docusate Sodium [Stool Softener]) 50 mg PO DAILY [facility] Ondansetron HCl (Ondansetron 4 Mg/2 Ml Sdv) 4 mg IVPUSH ONETIME ONE Stop: 08/08/20 07:38 Last Admin: 08/08/20 07:47 Dose: 4 mg Documented by: Ondansetron HCl (Ondansetron 4 Mg/2 Ml Sdv) Confirm Administered Dose 4 mg .ROUTE .STK-MED ONE Stop: 08/08/20 14:39 Last Admin: 08/08/20 14:59 Dose: Not Given Documented by: Pantoprazole Sodium (Pantoprazole 40 Mg Vial) 80 mg IVPUSH DAILY [facility] Stop: 08/09/20 12:00 Last Admin: 08/09/20 10:36 Dose: 80 mg Documented by: Sodium Chloride (Sodium Chloride 0.9% 50 Ml Sdv) 50 ml FLUSH ONETIME ONE Stop: 08/08/20 08:52 Last Admin: 08/08/20 08:53 Dose: 50 ml Documented by: - Exam Quality Assessment: No: Supplemental Oxygen Urinary Catheter Total Time: 1Days 10Hours General: Alert, Oriented, Cooperative HEENT: Pupils Equal, EOMI Lungs: Clear to Auscultation, Normal Respiratory Effort Cardiovascular: Irregular Rhythm (afib) GI/Abdominal Exam: Normal Bowel Sounds, Soft, Non-Tender Extremities: Normal Inspection Neurological: Normal Speech, Strength Equal Bilateral, Sensation Intact Psy/Mental Status: Alert, Normal Affect, Normal Mood - Patient Data Result Diagrams: 08/11/20 11:30 08/11/20 11:30 Cholo Results Last 24 hrs: Microbiology 08/08/20 14:11 MRSA Surveillance Culture - Final Nares, Unspecified NO MRSA ISOLATED Sepsis Event Note - Evaluation Sepsis Screening Result: No Definite Risk - Focused Exam Vital Signs: Vital Signs Temp Pulse Pulse Resp BP BP Pulse Ox 08/10/20 08:16 110 H 135/85 08/10/20 08:14 135/85 08/10/20 06:00 36.8 C 95 16 138/74 98 08/10/20 02:00 36.6 C 87 16 142/78 H 98 - Problem List & Annotations (1) Dizziness SNOMED Code(s): 913993970, 691465306 Code(s): R42 - DIZZINESS AND GIDDINESS Status: Acute Priority: Medium (2) Vertigo SNOMED Code(s): 917776767 Code(s): R42 - DIZZINESS AND GIDDINESS Status: Acute Priority: Medium (3) Afib SNOMED Code(s): 17507419 Code(s): I48.91 - UNSPECIFIED ATRIAL FIBRILLATION Status: Chronic Priority: Low Qualifiers: Atrial fibrillation type: paroxysmal Qualified Code(s): I48.0 - Paroxysmal atrial fibrillation (4) UTI (urinary tract infection) SNOMED Code(s): 43727949 Code(s): N39.0 - URINARY TRACT INFECTION, SITE NOT SPECIFIED Status: Acute Priority: Low Qualifiers: Urinary tract infection type: acute cystitis Hematuria presence: without hematuria Qualified Code(s): N30.00 - Acute cystitis without hematuria - Problem List Review Problem List Initiated/Reviewed/Updated: Yes - My Orders Last 24 Hours: My Active Orders 08/09/20 20:00 Aspirin [Halfprin] 81 mg PO BID atorvaSTATin [Lipitor] 40 mg PO BEDTIME 08/10/20 09:44 UA W/CHOLO RFLX IF INDICATED [URIN] Routine 08/10/20 10:00 Brain w Cont [MR] Routine Metoprolol Tartrate [Lopressor] 100 mg PO BID - Plan Plan:: 1- for Afib - resuming home meds - propafenolone 300mg TIB, will increase metoprolol to 50mg BID - right not he is at his baseline. Added Eliquis PO since admission. Was not on blood thinner prior to admission. high risk of fall. 2- UA: will start PO bactrim BID 3- for dizziness: vestibular vs stroke. On meclizine, he is scheduled for MRI brain tomorrow at noon. Started Eliquis given the Afib. 4- resuming rest of home meds as before. Tolerating PO diet,, no pain, nausea has improved. Herbert is out.
[2020-08-10] MEDS: Sulfamethoxazole/Trimethoprim 800-160 MG Tab PO SCH ×2 (13:39→19:51)
[2020-08-10] MEDS: traMADol 50 MG Tab PO PRN (17:40)
[2020-08-10] MEDS: diphenhydrAMINE 25 MG Cap PO PRN (19:50)
[2020-08-10] MEDS: atorvaSTATin 40 MG Tab PO SCH (19:51)
[2020-08-11] MEDS: Docusate Sodium 100 MG Cap PO SCH (07:44)
[2020-08-11] MEDS: metFORMIN 500 MG Tab PO SCH (07:44)
[2020-08-11] MEDS: Apixaban 5 MG Tab PO SCH (07:45)
[2020-08-11] MEDS: glyBURIDE 5 MG Tab PO SCH (07:45)
[2020-08-11] MEDS: Sulfamethoxazole/Trimethoprim 800-160 MG Tab PO SCH (07:45)
[2020-08-11] MEDS: Aspirin 81 MG Tab.EC PO SCH (07:46)
[2020-08-11] MEDS: amLODIPine 5 MG Tab PO SCH (07:46)
[2020-08-11] MEDS: PROPAFENONE HCL 300 MG PO SCH ×2 (07:47→13:52)
[2020-08-11] MEDS: Metoprolol Tartrate 50 MG Tab PO SCH (07:47)
[2020-08-11] MEDS ORDERED: LORazepam 2 MG/ML SDV IVPUSH ONE (11:18)
--- NOTE | 2020-08-11 14:24 | MR ---
DATE OF SERVICE: 08/11/2020 CLINICAL DATA: Dizziness Enhanced brain MRI: Routine MR protocol without and with IV contrast was performed. No priors. There is diffuse atrophy. There are scattered foci of bright signal intensity involving the periventricular white matter bilaterally consistent with small vessel ischemic change. There is a large area of abnormal signal involving the right cerebellar hemisphere. It has decreased signal on the T1 weighted images and increased signal on the T2 , FLAIR and diffusion images images. There is subtle enhancement at its periphery. There is mass effect associated with shift of the midline structures to the left and effacement of adjacent structures including the 4th ventricle. This is consistent appearance with a acute infarct. No other foci of abnormal signal. No evidence of intracranial hemorrhage. Impression: Abnormal exam. See above. MTDD
--- NOTE | 2020-08-11 15:28 | PCM.DCSUM1 ---
Discharge Summary - Hospital Course HPI Initial Comments: dizziness and nausea Brief History: patient was admitted to the floor for management of severe dizziness. h/o afib - not on blood thinners but on rate/rythm control meds. in the CT head with contrast - didn't show a stroke,, and was admitted to the floor for further evaluations and testing. He was started on Eliquis. Metoprolol PO was increased to 50mg BID and home meds were resumed. Nausea was controlled with PO meds. Was found to have a UTI -- this was treated with PO bactrim. MRI was scheduled later on. While hospitalized patient - nausea has improved. but dizziness didnt improved with medical management. 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 Diagnosis: Stroke: Yes Modified Radha Scale: Mod.Sev.Disability ;Unable to Walk/Attend Bodily Needs W/O Assistance Modified [place] Scale Score: 4 - Discharge Data Discharge Date: 08/11/20 Discharge Disposition: DC/Tfer to Acute Hospital 02 Condition: Good - Referral to Home Health Primary Care Physician: PCP None - Discharge Diagnosis/Problem(s) (1) Dizziness SNOMED Code(s): 237967678, 308115159 ICD Code: R42 - DIZZINESS AND GIDDINESS Status: Acute Priority: Medium (2) Afib SNOMED Code(s): 18539348 ICD Code: I48.91 - UNSPECIFIED ATRIAL FIBRILLATION Status: Chronic Priority: Low Qualifiers: Atrial fibrillation type: paroxysmal Qualified Code(s): I48.0 - Paroxysmal atrial fibrillation (3) Cerebellar stroke, acute SNOMED Code(s): 55158390005083284, 67722571203087386 ICD Code: I63.9 - CEREBRAL INFARCTION, UNSPECIFIED Status: Acute Priority: High - Patient Summary/Data Consults: Consultations 08/08/20 11:18 PT Evaluation and Treatment [CONS] Routine Please Evaluate and Treat. PT Reason for Consult: Vestibular This query below is only for informational purposes and is not editable. Hospital Course: discussed the MRI findings with the stroke neurologist in [facility] - who recommended to transfer the patient to his facility for further evaluation. His symptoms probably related to embolic stroke from afib. First CT scan didn't show the changes - probably due to early in the course. Eliquis was started while hospitalization and vitals were controlled with IV meds. Transferred by the patient by fixed wing. - Discharge Plan *PRESCRIPTION DRUG MONITORING PROGRAM REVIEWED*: Not Applicable *COPY OF PRESCRIPTION DRUG MONITORING REPORT IN PATIENT HILARIO: Not Applicable Home Medications: Home Meds Aspirin [Halfprin] 81 mg PO BID 08/08/20 [History] Docusate Sodium [Stool Softener] 50 mg PO DAILY 08/08/20 [History] Metoprolol Tartrate 25 mg PO BID 08/08/20 [History] Propafenone HCl 300 mg PO TID 08/08/20 [History] amLODIPine [Norvasc] 5 mg PO DAILY 08/08/20 [History] atorvaSTATin [Lipitor] 40 mg PO DAILY 08/08/20 [History] glyBURIDE/Metformin HCl [Glyburid-Metformin 1.25-250 mg] 1 each PO DAILY 08/08/20 [History] traMADol HCl [Tramadol HCl] 50 mg PO TID PRN 08/08/20 [History] Forms: ED Department Discharge Referrals: PCP,None [Primary Care Provider] - - Discharge Summary/Plan Comment DC Time >30 min.: Yes - General Info Date of Service: 08/11/20 Admission Dx/Problem (Free Text: Admission Diagnosis/Problem Admission Diagnosis/Problem Dizziness Functional Status: Reports: Tolerating Diet. Denies: Ambulating - Review of Systems General: Reports: No Symptoms HEENT: Reports: No Symptoms Pulmonary: Reports: No Symptoms Cardiovascular: Reports: No Symptoms Gastrointestinal: Reports: No Symptoms Genitourinary: Reports: No Symptoms Neurological: Reports: Dizziness Psychiatric: Reports: No Symptoms - Patient Data Vitals - Most Recent: Last Vital Signs Temp 37.4 C 08/11/20 12:00 Pulse 115 H 08/11/20 12:00 Resp 18 08/11/20 12:00 BP 137/93 H 08/11/20 12:00 Pulse Ox 95 08/11/20 12:00 Weight - Most Recent: 88.904 kg I&O - Last 24 hours: Intake & Output 08/11/20 08/11/20 08/11/20 06:59 14:59 22:59 Intake Total 200 Output Total 700 Balance -500 Lab Results - Last 24 hrs: Laboratory Results - last 24 hr 05/27/21 05/27/21 05/27/21 Range/Units 10:38 11:30 11:30 WBC 17.7 H (4.0-11.0) K/uL RBC 4.37 L (4.50-6.50) M/uL Hgb 14.7 (13.0-18.0) g/dL Hct 42.7 (40.0-54.0) % MCV 98 H (76-96) fL MCH 33.6 H (27.0-32.0) pg MCHC 34.4 (31.0-35.0) g/dL RDW 13.5 (11.0-16.0) % Plt Count 252 (150-400) K/uL MPV 10.5 H (6.0-10.0) fL Neut % (Auto) 69.6 (45.0-70.0) % Lymph % (Auto) 13.3 L (20.0-40.0) % [place] % (Auto) 15.6 H (3.0-10.0) % Eos % (Auto) 1.1 (1.0-5.0) % Baso % (Auto) 0.4 (0.0-0.5) % Neut # (Auto) 12.32 H (2.00-7.50) K/uL Lymph # (Auto) 2.35 (1.50-4.00) K/uL [place] # (Auto) 2.76 H (0.20-0.80) K/uL Eos # (Auto) 0.20 (0.04-0.40) K/uL Baso # (Auto) 0.07 (0.02-0.10) K/uL Sodium 140 (136-145) mmol/L Potassium 3.7 (3.5-5.1) mmol/L Chloride 105 (98-107) mmol/L Carbon Dioxide 22.5 (21.0-32.0) mmol/L Anion Gap 16.2 H (5.0-15.0) mmol/L BUN 17 (8-26) mg/dL Creatinine 1.13 (0.70-1.30) mg/dL Est Cr Clr Drug Dosing 51.83 mL/min Estimated GFR (MDRD) > 60 (>60) MLS/MIN BUN/Creatinine Ratio 15.0 (6-25) Glucose 173 H (74-100) mg/dL POC Glucose 175 H (74-110) mg/dL Calcium 8.2 L (8.5-10.1) mg/dL Med Orders - Current: Current Medications Amlodipine Besylate (Amlodipine 5 Mg Tab) 5 mg PO DAILY [facility] Last Admin: 08/11/20 07:46 Dose: 5 mg Documented by: Apixaban (Apixaban 5 Mg Tab) 5 mg PO BID [facility] Last Admin: 08/11/20 07:45 Dose: 5 mg Documented by: Aspirin (Aspirin 81 Mg Tab.Ec) 81 mg PO BID [facility] Last Admin: 08/11/20 07:46 Dose: 81 mg Documented by: Atorvastatin Calcium (Atorvastatin 40 Mg Tab) 40 mg PO BEDTIME [facility] Last Admin: 08/10/20 19:51 Dose: 40 mg Documented by: Diphenhydramine HCl (Diphenhydramine 25 Mg Cap) 25 mg PO Q4H PRN PRN Reason: Dizziness Last Admin: 08/10/20 19:50 Dose: 25 mg Documented by: Docusate Sodium (Docusate Sodium 100 Mg Cap) 100 mg PO DAILY [facility] Last Admin: 08/11/20 07:44 Dose: 100 mg Documented by: Glyburide (Glyburide 5 Mg Tab) 1.25 mg PO DAILY [facility] Last Admin: 08/11/20 07:45 Dose: 1.25 mg Documented by: Sodium Chloride (Sodium Chloride 3%) 500 mls @ 25 mls/hr IV ASDIRECTED [facility] Meclizine HCl (Meclizine 25 Mg Tab.Chew) 25 mg PO TID [facility] Last Admin: 08/11/20 13:52 Dose: 25 mg Documented by: Metformin HCl (Metformin 500 Mg Tab) 250 mg PO DAILY [facility] Last Admin: 08/11/20 07:44 Dose: 250 mg Documented by: Metoprolol Tartrate (Metoprolol Tartrate 50 Mg Tab) 50 mg PO BID [facility] Last Admin: 08/11/20 07:47 Dose: 50 mg Documented by: Non-Formulary Medication (Propafenone Hcl [Propafenone Hcl]) 300 mg PO TID [facility] Last Admin: 08/11/20 13:52 Dose: 300 mg Documented by: Prochlorperazine Maleate (Prochlorperazine 10 Mg Tab) 10 mg PO Q6H PRN PRN Reason: Nausea/Vomiting Last Admin: 08/09/20 17:00 Dose: 10 mg Documented by: Senna/Docusate Sodium (Docusate Sodium/Sennosides 50-8.6 Mg Tab) 1 tab PO DAILY PRN PRN Reason: Constipation Tramadol HCl (Tramadol 50 Mg Tab) 50 mg PO TID PRN PRN Reason: Pain Last Admin: 08/10/20 17:40 Dose: 50 mg Documented by: Trimethoprim/Sulfamethoxazole (Sulfamethoxazole/Trimethoprim 800-160 Mg Tab) 1 tab PO BID [facility] Last Admin: 08/11/20 07:45 Dose: 1 tab Documented by: Discontinued Medications Al Hydroxide/Mg Hydroxide (Gi Cocktail Oral Solution 30 Ml) 30 ml PO ONETIME ONE Stop: 08/08/20 16:44 Last Admin: 08/08/20 19:50 Dose: Not Given Documented by: Aspirin (Aspirin 325 Mg Tab.Ec) 325 mg PO ONETIME ONE Stop: 08/08/20 08:56 Last Admin: 08/08/20 11:38 Dose: 325 mg Documented by: Aspirin (Aspirin 81 Mg Tab.Ec) 162 mg PO DAILY [facility] Last Admin: 08/09/20 08:32 Dose: 81 mg Documented by: Aspirin (Aspirin 81 Mg Tab.Ec) 81 mg PO BID [facility] Atorvastatin Calcium (Atorvastatin 40 Mg Tab) 40 mg PO DAILY [facility] Last Admin: 08/09/20 08:34 Dose: Not Given Documented by: Diltiazem HCl (Diltiazem 25 Mg/5 Ml Sdv) 10 mg IVPUSH ONETIME ONE Stop: 08/08/20 19:52 Last Admin: 08/08/20 20:07 Dose: 10 mg Documented by: Diltiazem HCl (Diltiazem 25 Mg/5 Ml Sdv) 15 mg IVPUSH ONETIME ONE Stop: 08/08/20 21:17 Last Admin: 08/08/20 21:23 Dose: 15 mg Documented by: Diphenhydramine HCl (Diphenhydramine 50 Mg/Ml Sdv) 50 mg IVPUSH ONETIME ONE Stop: 08/08/20 09:10 Last Admin: 08/08/20 09:18 Dose: 50 mg Documented by: Diphenhydramine HCl (Diphenhydramine 50 Mg/Ml Sdv) Confirm Administered Dose 50 mg .ROUTE .STK-MED ONE Stop: 08/08/20 09:24 Last Admin: 08/08/20 14:59 Dose: Not Given Documented by: Sodium Chloride (Normal Saline) 1,000 mls @ 999 mls/hr IV ASDIRECTED [facility] Last Admin: 08/08/20 08:20 Dose: 999 mls/hr Documented by: Sodium Chloride (Normal Saline) 1,000 mls @ 150 mls/hr IV ASDIRECTED [facility] Last Admin: 08/09/20 12:05 Dose: 150 mls/hr Documented by: Diltiazem HCl 100 mg/ Sodium (Chloride) 100 mls @ 5 mls/hr IV TITRATE [facility]; Protocol Last Titration: 08/09/20 17:30 Dose: Infused Documented by: Iodixanol (Iodixanol 652 Mg/Ml 100 Ml Bottle) 100 ml IV . DIRECTED [facility] Last Admin: 08/08/20 08:53 Dose: 100 ml Documented by: Iodixanol (Iodixanol 652 Mg/Ml 100 Ml Bottle) 100 ml IV ASDIRECTED [facility] Stop: 08/08/20 23:59 Lorazepam (Lorazepam 2 Mg/Ml Sdv) 0.5 mg IVPUSH ONETIME ONE Stop: 08/08/20 09:10 Last Admin: 08/08/20 09:18 Dose: 0.5 mg Documented by: Lorazepam (Lorazepam 2 Mg/Ml Sdv) Confirm Administered Dose 2 mg .ROUTE .STK-MED ONE Stop: 08/08/20 09:24 Last Admin: 08/08/20 14:59 Dose: Not Given Documented by: Lorazepam (Lorazepam 2 Mg/Ml Sdv) 1 mg IVPUSH ONETIME ONE Stop: 08/11/20 11:19 Last Admin: 08/11/20 11:30 Dose: 1 mg Documented by: Meclizine HCl (Meclizine 25 Mg Tab.Chew) 25 mg PO NOW STA Stop: 08/08/20 07:48 Last Admin: 08/08/20 08:24 Dose: 25 mg Documented by: Meclizine HCl (Meclizine 25 Mg Tab.Chew) Confirm Administered Dose 25 mg .ROUTE .STK-MED ONE Stop: 08/08/20 08:33 Last Admin: 08/08/20 14:59 Dose: Not Given Documented by: Meclizine HCl (Meclizine 25 Mg Tab.Chew) 25 mg PO NOW STA Stop: 08/08/20 11:18 Last Admin: 08/08/20 11:37 Dose: 25 mg Documented by: Meclizine HCl (Meclizine 25 Mg Tab.Chew) Confirm Administered Dose 25 mg .ROUTE .STK-MED ONE Stop: 08/08/20 11:26 Last Admin: 08/08/20 14:59 Dose: Not Given Documented by: Metoprolol Tartrate (Metoprolol Tartrate 25 Mg Tab) 25 mg PO BID [facility] Last Admin: 08/09/20 08:11 Dose: 25 mg Documented by: Metoprolol Tartrate (Metoprolol Tartrate 5 Mg/5 Ml Sdv) 5 mg IVPUSH ONETIME ONE Stop: 08/08/20 17:42 Last Admin: 08/08/20 17:46 Dose: 5 mg Documented by: Metoprolol Tartrate (Metoprolol Tartrate 50 Mg Tab) 50 mg PO BID [facility] Last Admin: 08/10/20 08:16 Dose: 50 mg Documented by: Metoprolol Tartrate (Metoprolol Tartrate 25 Mg Tab) Confirm Administered Dose 25 mg .ROUTE .STK-MED ONE Stop: 08/09/20 10:06 Last Admin: 08/09/20 10:23 Dose: Not Given Documented by: Metoprolol Tartrate (Metoprolol Tartrate 25 Mg Tab) 25 mg PO ONETIME ONE Stop: 08/09/20 10:21 Last Admin: 08/09/20 10:27 Dose: 25 mg Documented by: Metoprolol Tartrate (Metoprolol Tartrate 50 Mg Tab) 100 mg PO BID [facility] Last Admin: 08/10/20 10:00 Dose: 50 mg Documented by: Non-Formulary Medication (Docusate Sodium [Stool Softener]) 50 mg PO DAILY [facility] Non-Formulary Medication (Propafenone Hcl [Propafenone Hcl]) 300 mg PO DAILY [facility] Last Admin: 08/10/20 08:14 Dose: 300 mg Documented by: Ondansetron HCl (Ondansetron 4 Mg/2 Ml Sdv) 4 mg IVPUSH ONETIME ONE Stop: 08/08/20 07:38 Last Admin: 08/08/20 07:47 Dose: 4 mg Documented by: Ondansetron HCl (Ondansetron 4 Mg Tab.Dis) 4 mg PO Q6H PRN PRN Reason: Nausea/Vomiting Last Admin: 08/09/20 04:25 Dose: 4 mg Documented by: Ondansetron HCl (Ondansetron 4 Mg/2 Ml Sdv) Confirm Administered Dose 4 mg .ROUTE .STK-MED ONE Stop: 08/08/20 14:39 Last Admin: 08/08/20 14:59 Dose: Not Given Documented by: Pantoprazole Sodium (Pantoprazole 40 Mg Vial) 80 mg IVPUSH DAILY [facility] Stop: 08/09/20 12:00 Last Admin: 08/09/20 10:36 Dose: 80 mg Documented by: Sodium Chloride (Sodium Chloride 0.9% 50 Ml Sdv) 50 ml FLUSH ONETIME ONE Stop: 08/08/20 08:52 Last Admin: 08/08/20 08:53 Dose: 50 ml Documented by: - Exam Quality Assessment: Denies: Supplemental Oxygen General: Reports: Alert, Oriented, No Acute Distress HEENT: Reports: Pupils Equal Lungs: Reports: Clear to Auscultation, Normal Respiratory Effort Cardiovascular: Reports: Irregular Rhythm GI/Abdominal Exam: Normal Bowel Sounds, Soft, Non-Tender Extremities: Normal Inspection, Normal Range of Motion Skin: Reports: Warm Neurological: Reports: Strength Equal Bilateral, Sensation Intact. Denies: Normal Gait Psy/Mental Status: Reports: Alert, Normal Affect, Normal Mood
[2020-08-11] MEDS ORDERED: Sodium Chloride 3% 500 ML IV SCH (15:30)
== END 2020-08-11 16:50 | DRG 149 ==
LOC: LB.ED 07:07 → LB.MS 12:37
PROVIDERS: ADMIT Surgery; ATTEND Surgery
DX: R42 Dizziness and giddiness (principal); I48.0 Paroxysmal atrial fibrillation; I48.91 Unspecified atrial fibrillation; Z20.822 Contact with and (suspected) exposure to COVID-19; R11.0 Nausea; H91.90 Unspecified hearing loss, unspecified ear; E78.00 Pure hypercholesterolemia, unspecified; Z96.659 Presence of unspecified artificial knee joint; M19.90 Unspecified osteoarthritis, unspecified site; Z79.82 Long term (current) use of aspirin; Z79.899 Other long term (current) drug therapy; Z95.5 Presence of coronary angioplasty implant and graft; Z85.828 Personal history of other malignant neoplasm of skin; Z79.84 Long term (current) use of oral hypoglycemic drugs
CPT/HCPCS: 36415; 51702; 70470; 70553; 80048; 80053; 81001; 82947; 83690; 84484; 85025; 85027; 85610; 87086; 87088; 87186; 93005; 93010; 96374; 96375; 99222; 99232; 99239; 99285-25; A0425; A0429; A9270-GY; C9113; J1200; J2060; J2405; J3490; J7030; J7131; Q0164; U0002

== ENCOUNTER 2020-09-09 09:06 | Inpatient (IN) | payer MEDICARE, BC ==
[2020-09-09] MEDS ORDERED: Tuberculin, PPD 5 Units/0.1 ML 1 ML MDV IDERM ONE (12:00)
[2020-09-09] MEDS ORDERED: DOCUSATE SODIUM 50 MG PO PRN (13:28)
--- NOTE | 2020-09-09 13:31 | PCM.HP.2 ---
H&P History of Present Illness - General Date of Service: 09/09/20 Admit Problem/Dx: Admission Diagnosis/Problem Admission Diagnosis/Problem CVA, Cerebrovascular accident Source of Information: Patient, Old Records History Limitations: Reports: No Limitations - History of Present Illness Initial Comments - Free Text/Narative: patient was transferred from OSH to out swing bed - for continuation of his rehab and PT/OT. patient is s/p craniotomy 08/11 for a recent CVA. CVA has affected cerebellum - resulting in loss of balance and slight confusion. Patient also has a h/o arrhythmias for which he is on rhythm control meds. post-op recovery was slightly challenging for him -has a scalp wound infection that was managed with Abx, and few episode of falls - that didn't cause any further brain damages. Patient also has been loosing weight and not eating much. After some period of acute rehab at OSH - patient and his family have requested to be transfer to [facility] to be closer to family. - Related Data Allergies/Adverse Reactions: Allergies Allergy/AdvReac Type Severity Reaction Status Date / Time No Known Allergies Allergy Verified 09/09/20 10:35 Home Medications: Home Meds Aspirin [Halfprin] 81 mg PO BID 08/08/20 [History] Docusate Sodium [Stool Softener] 50 mg PO DAILY PRN 08/08/20 [History] Metoprolol Tartrate 150 mg PO BID 08/08/20 [History] Propafenone HCl 225 mg PO TID 08/08/20 [History] atorvaSTATin [Lipitor] 40 mg PO DAILY 08/08/20 [History] Acetaminophen [Arthritis Pain] 650 mg PO Q6HR PRN 09/09/20 [History] Digoxin [Lanoxin] 0.125 mg PO DAILY 09/09/20 [History] Lutein/Min/Vit C/Vit E Acetate [Ocuvite Lutein] 1 cap PO DAILY 09/09/20 [History] Meclizine [Antivert] 25 mg PO BID 09/09/20 [History] Mirtazapine 7.5 mg PO BEDTIME 09/09/20 [History] Multivit with Iron,Minerals [Complete Senior] 1 tab PO DAILY 09/09/20 [History] lisinopriL [Lisinopril] 5 mg PO DAILY 09/09/20 [History] Past Medical History HEENT History: Reports: Hard of Hearing Cardiovascular History: Reports: Afib, High Cholesterol, Stents Genitourinary History: Reports: Other (See Below) Other Genitourinary History: states that his "flow is slow" and that he has to get up at night Musculoskeletal History: Reports: Osteoarthritis Other Musculoskeletal History: recent knee replacement Other Endocrine/Metabolic History: takes metformin Dermatologic History: Reports: Other (See Below) Other Dermatologic History: Hx of basal cell carcinoma - Past Surgical History Other HEENT Surgeries/Procedures: hx of fluid in his ears saw a provider in [place] 3 yrs ago Social & Family History - Caffeine Use Caffeine Use: Reports: Coffee Caffeine Use Comment: 1 cup daily H&P Review of Systems - Review of Systems: Review Of Systems: See Below General: Reports: Malaise, Fatigue, Decreased Appetite HEENT: Reports: Vertigo Pulmonary: Reports: No Symptoms Cardiovascular: Reports: No Symptoms Gastrointestinal: Reports: No Symptoms Skin: Reports: No Symptoms Psychiatric: Reports: Confusion, Anxiety, Agitation. Denies: Suicidal Ideation Neurological: Reports: Confusion, Dizziness, Difficulty Walking, Gait Disturbance Exam - Exam Exam: See Below - Vital Signs Vital Signs: Last Vital Signs Temp 35.6 C L 09/09/20 13:19 Pulse 86 09/09/20 13:19 Resp 16 09/09/20 13:19 BP 113/75 09/09/20 13:19 Pulse Ox 98 09/09/20 13:19 Weight: 78.335 kg - Exam Quality Assessment: No: Supplemental Oxygen General: Alert, Oriented, Cooperative HEENT: PERRLA, Conjunctiva Clear Lungs: Clear to Auscultation, Normal Respiratory Effort Cardiovascular: Regular Rate, Regular Rhythm GI/Abdominal Exam: Normal Bowel Sounds, Soft, Non-Tender Extremities: Normal Inspection, Normal Range of Motion Neuro Extensive - Mental Status: Alert, Disorientation to Person, Disorientation to Place, Disorientation to Time Neuro Extensive - Motor, Sensory, Reflexes: Abnormal Gait Psychiatric: Alert, Normal Affect, Normal Mood Sepsis Event Note - Focused Exam Vital Signs: Vital Signs Temp Pulse Resp BP Pulse Ox 09/09/20 13:19 35.6 C L 86 16 113/75 98 09/09/20 12:00 35.6 C L 86 16 113/75 98 - Problem List (1) Cerebellar stroke, acute SNOMED Code(s): 56498091554287066, 85716791235645093 ICD Code: I63.9 - CEREBRAL INFARCTION, UNSPECIFIED Status: Acute Priority: High Current Visit: No (2) Dizziness SNOMED Code(s): 309452253, 359322548 ICD Code: R42 - DIZZINESS AND GIDDINESS Status: Acute Priority: Medium Current Visit: No (3) Vertigo SNOMED Code(s): 783444735 ICD Code: R42 - DIZZINESS AND GIDDINESS Status: Acute Priority: Medium Current Visit: No (4) Afib SNOMED Code(s): 76773931 ICD Code: I48.91 - UNSPECIFIED ATRIAL FIBRILLATION Status: Chronic Priority: Low Current Visit: No Qualifiers: Atrial fibrillation type: paroxysmal Qualified Code(s): I48.0 - Paroxysmal atrial fibrillation Problem List Initiated/Reviewed/Updated: Yes Orders Last 24hrs: Active Orders 24 hr Category Date Time Status Patient Status [ADT] Routine ADT 09/09/20 12:00 Active Vital Signs [RC] PER UNIT ROUTINE Care 09/09/20 12:00 Active Consult to Case Management/[employer] [CONS] Cons 09/09/20 10:34 Active Routine Consult to Physical Therapy [PT Evaluation and Cons 09/09/20 12:00 Active Treatment] [CONS] Routine OT Evaluation and Treatment [CONS] Routine Cons 09/09/20 12:00 Active Regular Diet [DIET] Diet 09/09/20 Lunch Ordered CORONAVIRUS COVID-19 RAPID [MOLEC] Routine Lab 09/09/20 12:00 Ordered CULTURE MRSA SURVEY [RM] Routine Lab 09/09/20 12:00 Ordered Acetaminophen [Tylenol Arthritis Pain] Med 09/09/20 13:28 Ordered 650 mg PO Q6HR PRN Digoxin [Lanoxin] Med 09/10/20 08:00 Ordered 125 mcg PO DAILY Docusate Sodium [Stool Softener] Med 09/09/20 13:28 Ordered 50 mg PO DAILY PRN Lutein/Min/Vit C/Vit E Acetate [Ocuvite Lutein] Med 09/10/20 08:00 Ordered 1 cap PO DAILY Meclizine [Antivert] Med 09/09/20 20:00 Ordered 25 mg PO BID Metoprolol Tartrate [Lopressor] Med 09/09/20 20:00 Ordered 150 mg PO BID Mirtazapine [Mirtazapine] Med 09/10/20 08:00 Ordered 7.5 mg PO DAILY Multivit with Iron,Minerals [Complete Senior] Med 09/10/20 08:00 Ordered 1 tab PO DAILY Propafenone HCl [Propafenone HCl] Med 09/09/20 14:00 Ordered 225 mg PO TID Sertraline [Zoloft] Med 09/09/20 20:00 Ordered 25 mg PO BEDTIME atorvaSTATin [Lipitor] Med 09/10/20 08:00 Ordered 40 mg PO DAILY lisinopriL [Prinivil] Med 09/10/20 08:00 Ordered 5 mg PO DAILY Resuscitation Status Routine Resus Stat 09/09/20 13:24 Ordered Medication Orders Acetaminophen (Acetaminophen 650 Mg Tab.Er) 650 mg PO Q6HR PRN PRN Reason: Pain Atorvastatin Calcium (Atorvastatin 40 Mg Tab) 40 mg PO DAILY [facility] Digoxin (Digoxin 125 Mcg Tab) 125 mcg PO DAILY [facility] Lisinopril (Lisinopril 5 Mg Tab) 5 mg PO DAILY [facility] Meclizine HCl (Meclizine 25 Mg Tab.Chew) 25 mg PO BID [facility] Metoprolol Tartrate (Metoprolol Tartrate 25 Mg Tab) 150 mg PO BID [facility] Non-Formulary Medication (Docusate Sodium [Stool Softener]) 50 mg PO DAILY PRN PRN Reason: Constipation Non-Formulary Medication (Lutein/Min/Vit C/Vit E Acetate [Ocuvite Lutein]) 1 cap PO DAILY [facility] Non-Formulary Medication (Mirtazapine [Mirtazapine]) 7.5 mg PO DAILY [facility] Non-Formulary Medication (Multivit With Iron,Minerals [Complete Senior]) 1 tab PO DAILY [facility] Non-Formulary Medication (Propafenone Hcl [Propafenone Hcl]) 225 mg PO TID [facility] Assessment/Plan Comment:: - Cerebellar CVA: s/p craniotomy, PT/OT consulted will work with them on daily basis - gait instability: high risk of fall - will need assistance on ambulation - Afib: controlled on meds. ASA 81 mg PO for now. - Malnutrition: encourage PO intake - resume rest of home meds as before family on bedside and very supportive - Mortality Measure Prognosis:: Good
[2020-09-09] MEDS ORDERED: PROPAFENONE HCL 300 MG PO SCH (14:00)
[2020-09-09] MEDS ORDERED: Aspirin 81 MG Tab.EC PO SCH (20:00)
[2020-09-09] MEDS ORDERED: Non-Formulary Medication 1 Each PO SCH (20:00)
[2020-09-09] MEDS: PROPAFENONE 300 MG PO SCH (20:30)
[2020-09-09] MEDS: Sertraline 25 MG Tab PO SCH (20:30)
[2020-09-09] MEDS: Metoprolol Succinate 50 MG Tab.ER PO SCH (20:30)
[2020-09-10] MEDS ORDERED: Multivitamins with Iron/Calcium/Folic Acid/Minerals Tab PO SCH (08:00)
[2020-09-10] MEDS ORDERED: Mirtazapine 15 MG Tab PO SCH (08:00)
[2020-09-10] MEDS: CALCIUM PO SCH (08:07)
[2020-09-10] MEDS: FOLIC ACID PO SCH (08:07)
[2020-09-10] MEDS: MULTIVITAMINS WITH IRON PO SCH (08:07)
[2020-09-10] MEDS: MINERALS PO SCH (08:07)
[2020-09-10] MEDS: Aspirin 81 MG Tab.EC PO SCH (08:07)
[2020-09-10] MEDS: VIT E ACETATE PO SCH (08:08)
[2020-09-10] MEDS: VIT C PO SCH (08:08)
[2020-09-10] MEDS: Lisinopril 5 MG Tab PO SCH (08:08)
[2020-09-10] MEDS: Digoxin 125 MCG Tab PO SCH (08:08)
[2020-09-10] MEDS: LUTEIN PO SCH (08:08)
[2020-09-10] MEDS: PROPAFENONE 300 MG PO SCH ×3 (08:09→20:15)
[2020-09-10] MEDS: Metoprolol Succinate 50 MG Tab.ER PO SCH ×2 (08:09→20:10)
[2020-09-10] MEDS ORDERED: Bacitracin Oint 1 GM U/D Packet TOP ONE (14:56)
[2020-09-10] MEDS ORDERED: Docusate Sodium 100 MG Cap PO PRN (16:31)
[2020-09-10] MEDS: Sertraline 25 MG Tab PO SCH (20:08)
[2020-09-10] MEDS: atorvaSTATin 40 MG Tab PO SCH (20:09)
[2020-09-10] MEDS: Acetaminophen 650 MG Tab.ER PO PRN (20:09)
[2020-09-10] MEDS: Mirtazapine 15 MG Tab PO SCH (20:09)
[2020-09-11] MEDS: MULTIVITAMINS WITH IRON PO SCH (07:36)
[2020-09-11] MEDS: Aspirin 81 MG Tab.EC PO SCH (07:36)
[2020-09-11] MEDS: MINERALS PO SCH (07:36)
[2020-09-11] MEDS: Digoxin 125 MCG Tab PO SCH (07:36)
[2020-09-11] MEDS: Lisinopril 5 MG Tab PO SCH (07:36)
[2020-09-11] MEDS: Metoprolol Succinate 50 MG Tab.ER PO SCH ×2 (07:36→19:07)
[2020-09-11] MEDS: FOLIC ACID PO SCH (07:36)
[2020-09-11] MEDS: CALCIUM PO SCH (07:36)
[2020-09-11] MEDS: VIT E ACETATE PO SCH (07:37)
[2020-09-11] MEDS: LUTEIN PO SCH (07:37)
[2020-09-11] MEDS: PROPAFENONE 300 MG PO SCH ×3 (07:37→19:06)
[2020-09-11] MEDS: VIT C PO SCH (07:37)
[2020-09-11] MEDS: Mirtazapine 15 MG Tab PO SCH (19:06)
[2020-09-11] MEDS: atorvaSTATin 40 MG Tab PO SCH (19:07)
[2020-09-12] MEDS: FOLIC ACID PO SCH (07:38)
[2020-09-12] MEDS: MINERALS PO SCH (07:38)
[2020-09-12] MEDS: CALCIUM PO SCH (07:38)
[2020-09-12] MEDS: Aspirin 81 MG Tab.EC PO SCH (07:38)
[2020-09-12] MEDS: MULTIVITAMINS WITH IRON PO SCH (07:38)
[2020-09-12] MEDS: Digoxin 125 MCG Tab PO SCH (07:39)
[2020-09-12] MEDS: Lisinopril 5 MG Tab PO SCH (07:39)
[2020-09-12] MEDS: LUTEIN PO SCH (07:39)
[2020-09-12] MEDS: VIT C PO SCH (07:39)
[2020-09-12] MEDS: VIT E ACETATE PO SCH (07:39)
[2020-09-12] MEDS: Metoprolol Succinate 50 MG Tab.ER PO SCH ×2 (07:40→19:43)
[2020-09-12] MEDS: PROPAFENONE 300 MG PO SCH ×3 (07:41→19:42)
--- NOTE | 2020-09-12 09:14 | PCM.PN ---
- General Info Date of Service: 09/12/20 Subjective Update: Patient has been doing well with some staff reports of possible sundowning. He appears alert and acknowledges and recognizes me. He denies any health concerns or issues and understands his recent health issues. Functional Status: Reports: Pain Controlled, Tolerating Diet - Review of Systems General: Reports: Weakness HEENT: Reports: No Symptoms Pulmonary: Reports: No Symptoms Cardiovascular: Reports: No Symptoms Gastrointestinal: Reports: No Symptoms Genitourinary: Reports: No Symptoms Musculoskeletal: Reports: No Symptoms Skin: Reports: No Symptoms Neurological: Reports: Dizziness, Pre-Existing Deficit, Weakness Psychiatric: Reports: No Symptoms - Patient Data Vitals - Most Recent: Last Vital Signs Temp 35.9 C L 09/12/20 08:00 Pulse 78 09/12/20 08:00 Resp 16 09/12/20 08:00 BP 130/89 09/12/20 08:00 Pulse Ox 97 09/12/20 08:00 Weight - Most Recent: 79.152 kg Med Orders - Current: Current Medications Acetaminophen (Acetaminophen 650 Mg Tab.Er) 650 mg PO Q6HR PRN PRN Reason: Pain Last Admin: 09/10/20 20:09 Dose: 650 mg Documented by: Aspirin (Aspirin 81 Mg Tab.Ec) 81 mg PO DAILY [facility] Last Admin: 09/12/20 07:38 Dose: 81 mg Documented by: Atorvastatin Calcium (Atorvastatin 40 Mg Tab) 40 mg PO BEDTIME [facility] Last Admin: 09/11/20 19:07 Dose: 40 mg Documented by: Digoxin (Digoxin 125 Mcg Tab) 125 mcg PO DAILY [facility] Last Admin: 09/12/20 07:39 Dose: 125 mcg Documented by: Docusate Sodium (Docusate Sodium 100 Mg Cap) 100 mg PO DAILY PRN PRN Reason: Constipation Lisinopril (Lisinopril 5 Mg Tab) 5 mg PO DAILY [facility] Last Admin: 09/12/20 07:39 Dose: 5 mg Documented by: Meclizine HCl (Meclizine 25 Mg Tab.Chew) 25 mg PO BID [facility] Last Admin: 09/12/20 07:38 Dose: 25 mg Documented by: Metoprolol Succinate (Metoprolol Succinate 50 Mg Tab.Er) 150 mg PO BID [facility] Last Admin: 09/12/20 07:40 Dose: 150 mg Documented by: Mirtazapine (Mirtazapine 15 Mg Tab) 7.5 mg PO BEDTIME [facility] Last Admin: 09/11/20 19:06 Dose: 7.5 mg Documented by: Multivitamins/Minerals (Multivitamins With Iron/Calcium/Folic Acid/Minerals (-) Tab Own Med) 1 tab PO DAILY [facility] Last Admin: 09/12/20 07:38 Dose: 1 tab Documented by: Lutein/Min/Vit C/Vit E Acetate (Ocuvite Lutein) Capsule Own Med 1 cap PO DAILY [facility] Last Admin: 09/12/20 07:39 Dose: 1 cap Documented by: Propafenone ( Rhythmol) 300 Mg Tablet Own Med 0 each PO TID [facility] Last Admin: 09/12/20 07:41 Dose: 1 each Documented by: Discontinued Medications Aspirin (Aspirin 81 Mg Tab.Ec) 81 mg PO BID [facility] Bacitracin (Bacitracin Oint 1 Gm U/D Packet) 1 dose TOP ONETIME ONE Stop: 09/10/20 14:57 Last Admin: 09/10/20 14:56 Dose: 1 dose Documented by: Mirtazapine (Mirtazapine 15 Mg Tab) 7.5 mg PO DAILY [facility] Multivitamins/Minerals (Multivitamins With Iron/Calcium/Folic Acid/Minerals Tab) 1 tab PO DAILY [facility] Non-Formulary Medication (Docusate Sodium [Stool Softener]) 50 mg PO DAILY PRN PRN Reason: Constipation Non-Formulary Medication (Propafenone Hcl [Propafenone Hcl]) 225 mg PO TID [facility] Last Admin: 09/09/20 16:24 Dose: Not Given Documented by: Non-Formulary Medication (Non-Formulary Medication 1 Each) 300 each PO TID [facility] Sertraline HCl (Sertraline 25 Mg Tab) 25 mg PO BEDTIME [facility] Last Admin: 09/10/20 20:08 Dose: 25 mg Documented by: Tuberculin PPD (Tuberculin, Ppd 5 Units/0.1 Ml 1 Ml Mdv) 5 unit IDERM ONETIME ONE Stop: 09/09/20 12:01 Last Admin: 09/09/20 16:25 Dose: 5 unit Documented by: - Exam General: Alert, Oriented, Cooperative HEENT: Pupils Equal, Pupils Reactive, EOMI Neck: Supple Lungs: Clear to Auscultation, Normal Respiratory Effort Cardiovascular: Regular Rate, Regular Rhythm GI/Abdominal Exam: Normal Bowel Sounds, Soft, Non-Tender Back Exam: Normal Inspection Extremities: Normal Inspection Neurological: No New Focal Deficit Psy/Mental Status: Alert, Normal Affect, Normal Mood Sepsis Event Note - Evaluation Sepsis Screening Result: No Definite Risk - Focused Exam Vital Signs: Vital Signs Temp Pulse Pulse Resp BP BP Pulse Ox 09/12/20 08:00 35.9 C L 78 16 130/89 97 09/12/20 07:40 78 130/89 09/12/20 07:39 76 130/89 - Problem List & Annotations (1) Cerebellar stroke, acute SNOMED Code(s): 76056034125924820, 31769165570899085 Code(s): I63.9 - CEREBRAL INFARCTION, UNSPECIFIED Status: Acute Priority: High Current Visit: No (2) Dizziness SNOMED Code(s): 750568119, 634496575 Code(s): R42 - DIZZINESS AND GIDDINESS Status: Acute Priority: High Current Visit: Yes (3) Vertigo SNOMED Code(s): 238219329 Code(s): R42 - DIZZINESS AND GIDDINESS Status: Acute Priority: High Current Visit: Yes (4) Weakness SNOMED Code(s): 66636748 Code(s): R53.1 - WEAKNESS Status: Acute Priority: High Current Visit: Yes - Problem List Review Problem List Initiated/Reviewed/Updated: Yes - Plan Plan:: Continue current PT/OT therapy and rehabilitation. No changes to medications at this time.
[2020-09-12] MEDS: atorvaSTATin 40 MG Tab PO SCH (19:42)
[2020-09-12] MEDS: Mirtazapine 15 MG Tab PO SCH (19:43)
[2020-09-13] MEDS: MULTIVITAMINS WITH IRON PO SCH (07:32)
[2020-09-13] MEDS: LUTEIN PO SCH (07:32)
[2020-09-13] MEDS: VIT C PO SCH (07:32)
[2020-09-13] MEDS: MINERALS PO SCH (07:32)
[2020-09-13] MEDS: VIT E ACETATE PO SCH (07:32)
[2020-09-13] MEDS: FOLIC ACID PO SCH (07:32)
[2020-09-13] MEDS: Aspirin 81 MG Tab.EC PO SCH (07:32)
[2020-09-13] MEDS: CALCIUM PO SCH (07:32)
[2020-09-13] MEDS: PROPAFENONE 300 MG PO SCH ×3 (07:33→20:57)
[2020-09-13] MEDS: Digoxin 125 MCG Tab PO SCH (07:33)
[2020-09-13] MEDS: Lisinopril 5 MG Tab PO SCH (07:36)
[2020-09-13] MEDS: Metoprolol Succinate 50 MG Tab.ER PO SCH ×2 (07:42→20:55)
[2020-09-13] MEDS: Magnesium Hydroxide 400 MG/5 ML Susp 30 ML Cup PO PRN (16:00)
[2020-09-13] MEDS: Acetaminophen 650 MG Tab.ER PO PRN (20:54)
[2020-09-13] MEDS: atorvaSTATin 40 MG Tab PO SCH (20:54)
[2020-09-13] MEDS: Mirtazapine 15 MG Tab PO SCH (20:55)
[2020-09-14] MEDS: VIT C PO SCH (07:47)
[2020-09-14] MEDS: PROPAFENONE 300 MG PO SCH ×3 (07:47→20:06)
[2020-09-14] MEDS: VIT E ACETATE PO SCH (07:47)
[2020-09-14] MEDS: LUTEIN PO SCH (07:47)
[2020-09-14] MEDS: FOLIC ACID PO SCH (07:48)
[2020-09-14] MEDS: MINERALS PO SCH (07:48)
[2020-09-14] MEDS: CALCIUM PO SCH (07:48)
[2020-09-14] MEDS: MULTIVITAMINS WITH IRON PO SCH (07:48)
[2020-09-14] MEDS: Aspirin 81 MG Tab.EC PO SCH (07:59)
[2020-09-14] MEDS: Digoxin 125 MCG Tab PO SCH (08:00)
[2020-09-14] MEDS: Docusate Sodium 100 MG Cap PO SCH (08:00)
[2020-09-14] MEDS: Bacitracin Oint 1 GM U/D Packet TOP SCH (08:01)
[2020-09-14] MEDS: Lisinopril 5 MG Tab PO SCH (08:32)
[2020-09-14] MEDS: Metoprolol Succinate 50 MG Tab.ER PO SCH ×2 (08:32→20:06)
[2020-09-14] MEDS: atorvaSTATin 40 MG Tab PO SCH (19:56)
[2020-09-14] MEDS: Acetaminophen 650 MG Tab.ER PO PRN (19:57)
[2020-09-14] MEDS: Mirtazapine 15 MG Tab PO SCH (19:57)
[2020-09-15] MEDS: Metoprolol Succinate 50 MG Tab.ER PO SCH ×2 (07:47→19:22)
[2020-09-15] MEDS: Lisinopril 5 MG Tab PO SCH (07:48)
[2020-09-15] MEDS: Aspirin 81 MG Tab.EC PO SCH (07:48)
[2020-09-15] MEDS: Digoxin 125 MCG Tab PO SCH (07:48)
[2020-09-15] MEDS: VIT E ACETATE PO SCH (07:49)
[2020-09-15] MEDS: VIT C PO SCH (07:49)
[2020-09-15] MEDS: LUTEIN PO SCH (07:49)
[2020-09-15] MEDS: Docusate Sodium 100 MG Cap PO SCH (07:49)
[2020-09-15] MEDS: Bacitracin Oint 1 GM U/D Packet TOP SCH (07:49)
[2020-09-15] MEDS: PROPAFENONE 300 MG PO SCH ×3 (07:50→19:22)
[2020-09-15] MEDS: FOLIC ACID PO SCH (07:52)
[2020-09-15] MEDS: MINERALS PO SCH (07:52)
[2020-09-15] MEDS: CALCIUM PO SCH (07:52)
[2020-09-15] MEDS: MULTIVITAMINS WITH IRON PO SCH (07:52)
[2020-09-15] MEDS: atorvaSTATin 40 MG Tab PO SCH (19:21)
[2020-09-15] MEDS: Mirtazapine 15 MG Tab PO SCH (19:22)
[2020-09-16] MEDS: MULTIVITAMINS WITH IRON PO SCH (08:00)
[2020-09-16] MEDS: VIT C PO SCH (08:00)
[2020-09-16] MEDS: FOLIC ACID PO SCH (08:00)
[2020-09-16] MEDS: CALCIUM PO SCH (08:00)
[2020-09-16] MEDS: LUTEIN PO SCH (08:00)
[2020-09-16] MEDS: MINERALS PO SCH (08:00)
[2020-09-16] MEDS: VIT E ACETATE PO SCH (08:00)
[2020-09-16] MEDS: Metoprolol Succinate 50 MG Tab.ER PO SCH ×2 (08:25→21:00)
[2020-09-16] MEDS: Bacitracin Oint 1 GM U/D Packet TOP SCH (08:25)
[2020-09-16] MEDS: Aspirin 81 MG Tab.EC PO SCH (08:25)
[2020-09-16] MEDS: Docusate Sodium 100 MG Cap PO SCH (08:26)
[2020-09-16] MEDS: Digoxin 125 MCG Tab PO SCH (08:26)
[2020-09-16] MEDS: Lisinopril 5 MG Tab PO SCH (08:26)
[2020-09-16] MEDS: PROPAFENONE 300 MG PO SCH ×3 (12:00→20:54)
[2020-09-16] MEDS: Mirtazapine 15 MG Tab PO SCH (20:53)
[2020-09-16] MEDS: Acetaminophen 650 MG Tab.ER PO PRN (20:54)
[2020-09-16] MEDS: atorvaSTATin 40 MG Tab PO SCH (20:54)
[2020-09-16] MEDS: Melatonin 3 MG Tab PO SCH (20:54)
[2020-09-16] MEDS ORDERED: Acetaminophen 650 MG Tab.ER PO PRN (22:53)
[2020-09-17] MEDS: Docusate Sodium 100 MG Cap PO SCH (07:39)
[2020-09-17] MEDS: Metoprolol Succinate 50 MG Tab.ER PO SCH ×2 (07:39→19:45)
[2020-09-17] MEDS: Lisinopril 5 MG Tab PO SCH (07:39)
[2020-09-17] MEDS: Digoxin 125 MCG Tab PO SCH (07:39)
[2020-09-17] MEDS: MULTIVITAMINS WITH IRON PO SCH (07:40)
[2020-09-17] MEDS: FOLIC ACID PO SCH (07:40)
[2020-09-17] MEDS: MINERALS PO SCH (07:40)
[2020-09-17] MEDS: Aspirin 81 MG Tab.EC PO SCH (07:40)
[2020-09-17] MEDS: PROPAFENONE 300 MG PO SCH ×3 (07:40→19:46)
[2020-09-17] MEDS: CALCIUM PO SCH (07:40)
[2020-09-17] MEDS: LUTEIN PO SCH (07:41)
[2020-09-17] MEDS: VIT C PO SCH (07:41)
[2020-09-17] MEDS: VIT E ACETATE PO SCH (07:41)
[2020-09-17] MEDS: Bacitracin Oint 1 GM U/D Packet TOP SCH (07:41)
[2020-09-17] MEDS: Magnesium Hydroxide 400 MG/5 ML Susp 30 ML Cup PO PRN (07:41)
[2020-09-17] MEDS: Melatonin 3 MG Tab PO SCH (19:44)
[2020-09-17] MEDS: atorvaSTATin 40 MG Tab PO SCH (19:44)
[2020-09-17] MEDS: Mirtazapine 15 MG Tab PO SCH (19:44)
[2020-09-18] MEDS: Docusate Sodium 100 MG Cap PO SCH (08:06)
[2020-09-18] MEDS: Bacitracin Oint 1 GM U/D Packet TOP SCH (08:06)
[2020-09-18] MEDS: Lisinopril 5 MG Tab PO SCH (08:07)
[2020-09-18] MEDS: Aspirin 81 MG Tab.EC PO SCH (08:07)
[2020-09-18] MEDS: Digoxin 125 MCG Tab PO SCH (08:08)
[2020-09-18] MEDS: VIT E ACETATE PO SCH (08:09)
[2020-09-18] MEDS: VIT C PO SCH (08:09)
[2020-09-18] MEDS: Metoprolol Succinate 50 MG Tab.ER PO SCH ×2 (08:09→19:26)
[2020-09-18] MEDS: LUTEIN PO SCH (08:09)
[2020-09-18] MEDS: PROPAFENONE 300 MG PO SCH ×2 (08:09→19:24)
[2020-09-18] MEDS: MINERALS PO SCH (08:10)
[2020-09-18] MEDS: CALCIUM PO SCH (08:10)
[2020-09-18] MEDS: FOLIC ACID PO SCH (08:10)
[2020-09-18] MEDS: MULTIVITAMINS WITH IRON PO SCH (08:10)
[2020-09-18] MEDS: Acetaminophen 650 MG Tab.ER PO PRN (19:25)
[2020-09-18] MEDS: Melatonin 3 MG Tab PO SCH (19:25)
[2020-09-18] MEDS: Mirtazapine 15 MG Tab PO SCH (19:25)
[2020-09-18] MEDS: atorvaSTATin 40 MG Tab PO SCH (19:25)
[2020-09-19] MEDS: PROPAFENONE 300 MG PO SCH ×4 (02:32→20:06)
[2020-09-19] MEDS: Aspirin 81 MG Tab.EC PO SCH (10:32)
[2020-09-19] MEDS: Docusate Sodium 100 MG Cap PO SCH (10:32)
[2020-09-19] MEDS: Digoxin 125 MCG Tab PO SCH (10:32)
[2020-09-19] MEDS: Lisinopril 5 MG Tab PO SCH (10:32)
[2020-09-19] MEDS: FOLIC ACID PO SCH (10:33)
[2020-09-19] MEDS: MULTIVITAMINS WITH IRON PO SCH (10:33)
[2020-09-19] MEDS: CALCIUM PO SCH (10:33)
[2020-09-19] MEDS: MINERALS PO SCH (10:33)
[2020-09-19] MEDS: VIT E ACETATE PO SCH (10:34)
[2020-09-19] MEDS: LUTEIN PO SCH (10:34)
[2020-09-19] MEDS: VIT C PO SCH (10:34)
[2020-09-19] MEDS: Bacitracin Oint 1 GM U/D Packet TOP SCH (10:34)
[2020-09-19] MEDS ORDERED: Metoprolol Succinate 50 MG Tab.ER ONE (10:38)
[2020-09-19] MEDS: Metoprolol Succinate 50 MG Tab.ER PO SCH ×2 (10:38→20:06)
[2020-09-19] MEDS: atorvaSTATin 40 MG Tab PO SCH (20:03)
[2020-09-19] MEDS: Melatonin 10 MG Cap PO SCH (20:04)
[2020-09-19] MEDS: Mirtazapine 15 MG Tab PO SCH (20:06)
[2020-09-20] MEDS: CALCIUM PO SCH (08:44)
[2020-09-20] MEDS: FOLIC ACID PO SCH (08:44)
[2020-09-20] MEDS: Bacitracin Oint 1 GM U/D Packet TOP SCH (08:44)
[2020-09-20] MEDS: PROPAFENONE 300 MG PO SCH ×3 (08:44→20:08)
[2020-09-20] MEDS: MULTIVITAMINS WITH IRON PO SCH (08:44)
[2020-09-20] MEDS: MINERALS PO SCH (08:44)
[2020-09-20] MEDS: VIT C PO SCH (08:45)
[2020-09-20] MEDS: VIT E ACETATE PO SCH (08:45)
[2020-09-20] MEDS: Metoprolol Succinate 50 MG Tab.ER PO SCH ×2 (08:45→20:09)
[2020-09-20] MEDS: LUTEIN PO SCH (08:45)
[2020-09-20] MEDS: Docusate Sodium 100 MG Cap PO SCH (08:46)
[2020-09-20] MEDS: Lisinopril 5 MG Tab PO SCH (08:46)
[2020-09-20] MEDS: Digoxin 125 MCG Tab PO SCH (08:46)
[2020-09-20] MEDS: Aspirin 81 MG Tab.EC PO SCH (08:46)
[2020-09-20] MEDS: atorvaSTATin 40 MG Tab PO SCH (20:08)
[2020-09-20] MEDS: Melatonin 10 MG Cap PO SCH (20:09)
[2020-09-20] MEDS: Mirtazapine 15 MG Tab PO SCH (20:10)
[2020-09-21] MEDS: Bacitracin Oint 1 GM U/D Packet TOP SCH (08:43)
[2020-09-21] MEDS: Aspirin 81 MG Tab.EC PO SCH (08:43)
[2020-09-21] MEDS: Docusate Sodium 100 MG Cap PO SCH (08:43)
[2020-09-21] MEDS: Digoxin 125 MCG Tab PO SCH (08:44)
[2020-09-21] MEDS: Metoprolol Succinate 50 MG Tab.ER PO SCH ×2 (08:44→20:00)
[2020-09-21] MEDS: Lisinopril 5 MG Tab PO SCH (08:44)
[2020-09-21] MEDS: MINERALS PO SCH (08:45)
[2020-09-21] MEDS: VIT C PO SCH (08:45)
[2020-09-21] MEDS: CALCIUM PO SCH (08:45)
[2020-09-21] MEDS: PROPAFENONE 300 MG PO SCH ×3 (08:45→20:01)
[2020-09-21] MEDS: LUTEIN PO SCH (08:45)
[2020-09-21] MEDS: MULTIVITAMINS WITH IRON PO SCH (08:45)
[2020-09-21] MEDS: VIT E ACETATE PO SCH (08:45)
[2020-09-21] MEDS: FOLIC ACID PO SCH (08:45)
[2020-09-21] MEDS: Acetaminophen 650 MG Tab.ER PO PRN (20:00)
[2020-09-21] MEDS: Mirtazapine 15 MG Tab PO SCH (20:00)
[2020-09-21] MEDS: atorvaSTATin 40 MG Tab PO SCH (20:01)
[2020-09-21] MEDS: Melatonin 10 MG Cap PO SCH (20:01)
[2020-09-22] MEDS: Bacitracin Oint 1 GM U/D Packet TOP SCH (09:12)
[2020-09-22] MEDS: Docusate Sodium 100 MG Cap PO SCH (09:13)
[2020-09-22] MEDS: Lisinopril 5 MG Tab PO SCH (09:13)
[2020-09-22] MEDS: Aspirin 81 MG Tab.EC PO SCH (09:13)
[2020-09-22] MEDS: Digoxin 125 MCG Tab PO SCH (09:13)
[2020-09-22] MEDS: MULTIVITAMINS WITH IRON PO SCH (09:14)
[2020-09-22] MEDS: LUTEIN PO SCH (09:14)
[2020-09-22] MEDS: FOLIC ACID PO SCH (09:14)
[2020-09-22] MEDS: MINERALS PO SCH (09:14)
[2020-09-22] MEDS: VIT E ACETATE PO SCH (09:14)
[2020-09-22] MEDS: VIT C PO SCH (09:14)
[2020-09-22] MEDS: PROPAFENONE 300 MG PO SCH ×3 (09:14→19:15)
[2020-09-22] MEDS: CALCIUM PO SCH (09:14)
[2020-09-22] MEDS: Metoprolol Succinate 50 MG Tab.ER PO SCH ×2 (09:16→19:15)
[2020-09-22] MEDS: Acetaminophen 650 MG Tab.ER PO PRN (19:13)
[2020-09-22] MEDS: Mirtazapine 15 MG Tab PO SCH (19:13)
[2020-09-22] MEDS: atorvaSTATin 40 MG Tab PO SCH (19:13)
[2020-09-22] MEDS: Melatonin 10 MG Cap PO SCH (19:14)
[2020-09-23] MEDS: Digoxin 125 MCG Tab PO SCH (08:04)
[2020-09-23] MEDS: Docusate Sodium 100 MG Cap PO SCH (08:04)
[2020-09-23] MEDS: Aspirin 81 MG Tab.EC PO SCH (08:05)
[2020-09-23] MEDS: Metoprolol Succinate 50 MG Tab.ER PO SCH (08:05)
[2020-09-23] MEDS: Lisinopril 5 MG Tab PO SCH (08:05)
[2020-09-23] MEDS: Bacitracin Oint 1 GM U/D Packet TOP SCH (08:07)
[2020-09-23] MEDS: PROPAFENONE 300 MG PO SCH (08:10)
[2020-09-23] MEDS: MINERALS PO SCH (08:11)
[2020-09-23] MEDS: FOLIC ACID PO SCH (08:11)
[2020-09-23] MEDS: MULTIVITAMINS WITH IRON PO SCH (08:11)
[2020-09-23] MEDS: CALCIUM PO SCH (08:11)
[2020-09-23] MEDS: LUTEIN PO SCH (08:12)
[2020-09-23] MEDS: VIT E ACETATE PO SCH (08:12)
[2020-09-23] MEDS: VIT C PO SCH (08:12)
--- NOTE | 2020-09-23 13:15 | PCM.DCSUM1 ---
Discharge Summary - Hospital Course Diagnosis: Stroke: Yes Modified Radha Scale: No Signif.Disability Despite Sympt.Able to Carry Out Usual Act./Duties Modified [place]ombs Scale Score: 1 - Discharge Data Discharge Date: 09/23/20 Discharge Disposition: Home, Self-Care 01 Condition: Good - Referral to Home Health Primary Care Physician: PCP None - Discharge Diagnosis/Problem(s) (1) Cerebellar stroke, acute SNOMED Code(s): 81845084691083061, 44759897398963875 ICD Code: I63.9 - CEREBRAL INFARCTION, UNSPECIFIED Status: Resolved Priority: High (2) Dizziness SNOMED Code(s): 142434498, 654682787 ICD Code: R42 - DIZZINESS AND GIDDINESS Status: Resolved Priority: High (3) Vertigo SNOMED Code(s): 114375045 ICD Code: R42 - DIZZINESS AND GIDDINESS Status: Resolved Priority: High (4) Weakness SNOMED Code(s): 47210433 ICD Code: R53.1 - WEAKNESS Status: Acute Priority: High - Patient Summary/Data Consults: Consultations 09/09/20 10:34 Consult to Case Management/Security Installation Technician [CONS] Routine Comment: Physician Instructions: Service(s) to be Consulted: Security Installation Technician 09/09/20 12:00 Consult to Physical Therapy [PT Evaluation and Treatment] [CONS] Routine Please Evaluate and Treat. PT Reason for Consult: Strengthening This query below is only for informational purposes and is not editable. Admission Diagnosis/Problem: CVA, Cerebrovascular accident OT Evaluation and Treatment [CONS] Routine Please Evaluate and Treat. OT Reason for Consult: ADL's This query below is only for informational purposes and is not editable. Admission Diagnosis/Problem: CVA, Cerebrovascular accident 09/13/20 19:16 Consult to Speech Language Pathology [CALL WORKER PERSON Evaluation and Treatment] [CONS] Routine Please Evaluate and Treat CALL WORKER PERSON Reason for Consult: Speech Language Cognitive This query below is only for informational purposes and is not editable. Admission Diagnosis/Problem: CVA, Cerebrovascular accident - Patient Instructions Diet: Usual Diet as Tolerated Activity: As Tolerated Driving: Do Not Drive - Discharge Plan Prescriptions/Med Rec: Digoxin [Lanoxin] 0.125 mg PO DAILY #90 atorvaSTATin [Lipitor] 40 mg PO DAILY #90 lisinopriL [Lisinopril] 5 mg PO DAILY #90 Propafenone HCl 225 mg PO TID #180 traZODone 50 mg PO BEDTIME #30 tablet Home Medications: Home Meds Aspirin [Halfprin] 81 mg PO BID 08/08/20 [History] Metoprolol Tartrate 150 mg PO BID 08/08/20 [History] Acetaminophen [Arthritis Pain] 650 mg PO Q6HR PRN 09/09/20 [History] Lutein/Min/Vit C/Vit E Acetate [Ocuvite Lutein] 1 cap PO DAILY 09/09/20 [History] Multivit with Iron,Minerals [Complete Senior] 1 tab PO DAILY 09/09/20 [History] Bacitracin [Bacitracin Oint 1 GM] 1 dose TOP DAILY packet 09/23/20 [Rx] Digoxin [Lanoxin] 0.125 mg PO DAILY #90 09/23/20 [Rx] Melatonin 1 tab PO BEDTIME PRN 09/23/20 [History] Melatonin 10 mg PO BEDTIME cap 09/23/20 [Rx] Non-Formulary Medication [NF Drug] 0.75 each PO TID each 09/23/20 [Rx] Propafenone HCl 225 mg PO TID #180 09/23/20 [Rx] atorvaSTATin [Lipitor] 40 mg PO DAILY #90 09/23/20 [Rx] lisinopriL [Lisinopril] 5 mg PO DAILY #90 09/23/20 [Rx] traZODone 50 mg PO BEDTIME #30 tablet 09/23/20 [Rx] Patient Handouts: Meclizine tablets or capsules, Dizziness - Discharge Summary/Plan Comment DC Time >30 min.: No Discharge Summary/Plan Comment: Patient discharged to care of family. Patient to continue Speech Therapy, Physical and Occupational Therapy. Follow up in clinic as directed. - General Info Date of Service: 09/23/20 Functional Status: Reports: Ambulating - Review of Systems General: Reports: Weakness HEENT: Reports: No Symptoms Pulmonary: Reports: No Symptoms Cardiovascular: Reports: No Symptoms Gastrointestinal: Reports: No Symptoms Genitourinary: Reports: No Symptoms Musculoskeletal: Reports: No Symptoms Skin: Reports: No Symptoms Neurological: Reports: Pre-Existing Deficit Psychiatric: Reports: No Symptoms - Patient Data Vitals - Most Recent: Last Vital Signs Temp 36.7 C 09/23/20 08:00 Pulse 98 09/23/20 10:56 Resp 16 09/23/20 08:00 BP 152/75 H 09/23/20 10:56 Pulse Ox 99 09/23/20 10:56 Weight - Most Recent: 69.49 kg I&O - Last 24 hours: Intake & Output 09/22/20 09/23/20 09/23/20 22:59 06:59 14:59 Intake Total 120 Balance 120 Med Orders - Current: Current Medications Acetaminophen (Acetaminophen 650 Mg Tab.Er) 650 mg PO Q8H PRN PRN Reason: Pain Last Admin: 09/22/20 19:13 Dose: 650 mg Documented by: Aspirin (Aspirin 81 Mg Tab.Ec) 81 mg PO DAILY [facility] Last Admin: 09/23/20 08:05 Dose: 81 mg Documented by: Atorvastatin Calcium (Atorvastatin 40 Mg Tab) 40 mg PO BEDTIME [facility] Last Admin: 09/22/20 19:13 Dose: 40 mg Documented by: Bacitracin (Bacitracin Oint 1 Gm U/D Packet) 1 dose TOP DAILY [facility] Last Admin: 09/23/20 08:07 Dose: 1 dose Documented by: Digoxin (Digoxin 125 Mcg Tab) 125 mcg PO DAILY [facility] Last Admin: 09/23/20 08:04 Dose: 125 mcg Documented by: Docusate Sodium (Docusate Sodium 100 Mg Cap) 100 mg PO DAILY [facility] Last Admin: 09/23/20 08:04 Dose: 100 mg Documented by: Lisinopril (Lisinopril 5 Mg Tab) 5 mg PO DAILY [facility] Last Admin: 09/23/20 08:05 Dose: 5 mg Documented by: Magnesium Hydroxide (Magnesium Hydroxide 400 Mg/5 Ml Susp 30 Ml Cup) 30 ml PO DAILY PRN PRN Reason: Constipation Last Admin: 09/17/20 07:41 Dose: 30 ml Documented by: Meclizine HCl (Meclizine 25 Mg Tab.Chew) 25 mg PO BID [facility] Last Admin: 09/23/20 08:04 Dose: 25 mg Documented by: Melatonin (Melatonin 10 Mg Cap) 10 mg PO BEDTIME [facility] Last Admin: 09/22/20 19:14 Dose: 10 mg Documented by: Metoprolol Succinate (Metoprolol Succinate 50 Mg Tab.Er) 150 mg PO BID [facility] Last Admin: 09/23/20 08:05 Dose: 150 mg Documented by: Multivitamins/Minerals (Multivitamins With Iron/Calcium/Folic Acid/Minerals (Thera-M) Tab Own Med) 1 tab PO DAILY [facility] Last Admin: 09/23/20 08:11 Dose: 1 tab Documented by: Lutein/Min/Vit C/Vit E Acetate (Ocuvite Lutein) Capsule Own Med 1 cap PO DAILY [facility] Last Admin: 09/23/20 08:12 Dose: 1 cap Documented by: Propafenone ( Rhythmol) 300 Mg Tablet Own Med 0.75 each PO TID [facility] Last Admin: 09/23/20 08:10 Dose: 0.75 each Documented by: Trazodone HCl (Trazodone 50 Mg Tab) 50 mg PO BEDTIME [facility] Discontinued Medications Acetaminophen (Acetaminophen 650 Mg Tab.Er) 650 mg PO Q6HR PRN PRN Reason: Pain Last Admin: 09/16/20 20:54 Dose: 650 mg Documented by: Aspirin (Aspirin 81 Mg Tab.Ec) 81 mg PO BID [facility] Bacitracin (Bacitracin Oint 1 Gm U/D Packet) 1 dose TOP ONETIME ONE Stop: 09/10/20 14:57 Last Admin: 09/10/20 14:56 Dose: 1 dose Documented by: Docusate Sodium (Docusate Sodium 100 Mg Cap) 100 mg PO DAILY PRN PRN Reason: Constipation Last Admin: 09/12/20 13:10 Dose: 100 mg Documented by: Melatonin (Melatonin 3 Mg Tab) 3 mg PO BEDTIME [facility] Last Admin: 09/18/20 19:25 Dose: 3 mg Documented by: Metoprolol Succinate (Metoprolol Succinate 50 Mg Tab.Er) Confirm Administered Dose 50 mg .ROUTE .STK-MED ONE Stop: 09/19/20 10:39 Last Admin: 09/19/20 11:13 Dose: Not Given Documented by: Mirtazapine (Mirtazapine 15 Mg Tab) 7.5 mg PO DAILY [facility] Mirtazapine (Mirtazapine 15 Mg Tab) 7.5 mg PO BEDTIME [facility] Last Admin: 09/22/20 19:13 Dose: 7.5 mg Documented by: Multivitamins/Minerals (Multivitamins With Iron/Calcium/Folic Acid/Minerals Tab) 1 tab PO DAILY [facility] Non-Formulary Medication (Docusate Sodium [Stool Softener]) 50 mg PO DAILY PRN PRN Reason: Constipation Non-Formulary Medication (Propafenone Hcl [Propafenone Hcl]) 225 mg PO TID [facility] Last Admin: 09/09/20 16:24 Dose: Not Given Documented by: Non-Formulary Medication (Non-Formulary Medication 1 Each) 300 each PO TID [facility] Propafenone ( Rhythmol) 300 Mg Tablet Own Med 0 each PO TID [facility] Last Admin: 09/14/20 07:47 Dose: 1 each Documented by: Sertraline HCl (Sertraline 25 Mg Tab) 25 mg PO BEDTIME [facility] Last Admin: 09/10/20 20:08 Dose: 25 mg Documented by: Tuberculin PPD (Tuberculin, Ppd 5 Units/0.1 Ml 1 Ml Mdv) 5 unit IDERM ONETIME ONE Stop: 09/09/20 12:01 Last Admin: 09/09/20 16:25 Dose: 5 unit Documented by: - Exam General: Reports: Alert, Oriented, Cooperative HEENT: Reports: Pupils Equal, Pupils Reactive, EOMI Neck: Reports: Supple Lungs: Reports: Clear to Auscultation, Normal Respiratory Effort Cardiovascular: Reports: Regular Rate, Regular Rhythm GI/Abdominal Exam: Normal Bowel Sounds Back Exam: Reports: Normal Inspection, Full Range of Motion Extremities: Normal Inspection, Normal Range of Motion Neurological: Reports: No New Focal Deficit Psy/Mental Status: Reports: Alert, Normal Affect, Normal Mood
[2020-09-23] MEDS ORDERED: traZODone 50 MG Tab PO SCH (20:00)
== END 2020-09-23 13:00 | disposition home or self-care (01) | DRG 57 ==
LOC: LB.MS 12:26
PROVIDERS: ADMIT Surgery; ATTEND Surgery
DX: I69.398 Other sequelae of cerebral infarction (principal); E46 Unspecified protein-calorie malnutrition; R53.1 Weakness; R42 Dizziness and giddiness; H91.90 Unspecified hearing loss, unspecified ear; I48.91 Unspecified atrial fibrillation; E78.00 Pure hypercholesterolemia, unspecified; M19.90 Unspecified osteoarthritis, unspecified site; Z96.659 Presence of unspecified artificial knee joint; R26.89 Other abnormalities of gait and mobility; Z20.822 Contact with and (suspected) exposure to COVID-19; Z79.82 Long term (current) use of aspirin; Z79.899 Other long term (current) drug therapy; Z79.84 Long term (current) use of oral hypoglycemic drugs; Z85.828 Personal history of other malignant neoplasm of skin
CPT/HCPCS: 86580; 92507-GN; 96125-GN; 97110-GP; 97162-GP; 97165-GO; 97530-GO; 97530-GP; A9270-GY; U0002

== ENCOUNTER 2020-09-29 14:57 | Inpatient (IN) | payer MEDICARE, BC ==
--- NOTE | 2020-09-29 16:50 | CR ---
DATE OF SERVICE: 09/29/20 CLINICAL DATA: FALLS PA chest and right ribs: The heart size is normal. There is calcification of the aortic arch. There is a linear density in the right costophrenic angle consistent with linear atelectasis or fibrosis. The lungs are otherwise clear. No pneumothorax. No pleural effusions. No rib abnormalities. No displaced fractures. No lytic or blastic bone lesions. There is scoliosis of the thoracic spine. There is degenerative disc disease throughout the thoracic spine. MTDD
--- NOTE | 2020-09-29 18:26 | EDM.PDOC ---
ED HPI GENERAL MEDICAL PROBLEM - General Chief Complaint: General Stated Complaint: CONFUSION, agitation, frequent falling. Time Seen by Provider: 09/29/20 15:00 Source of Information: Reports: Family History Limitations: Reports: Altered Mental Status - History of Present Illness INITIAL COMMENTS - FREE TEXT/NARRATIVE: Pt comes in by ambulance. He has been home from the Hospital for almost a week. He was on swing bed Post CVA / craniotomy. His condition was fairly stable, and jail care was suggested by health care, but family wanted him home. His son and daughter are here today wanting to talk about his care. It has not been going well at home, in fact terrible is what they call it. He has been aggressive, falling frequently, confused at times. Onset: Gradual Right Pain Score (Numeric/FACES): 4 - Related Data Allergies Allergy/AdvReac Type Severity Reaction Status Date / Time No Known Allergies Allergy Verified 09/29/20 15:39 Home Meds: Home Meds Aspirin [Halfprin] 81 mg PO BID 08/08/20 [History] Metoprolol Tartrate 150 mg PO BID 08/08/20 [History] Acetaminophen [Arthritis Pain] 650 mg PO Q6HR PRN 09/09/20 [History] Lutein/Min/Vit C/Vit E Acetate [Ocuvite Lutein] 1 cap PO DAILY 09/09/20 [History] Multivit with Iron,Minerals [Complete Senior] 1 tab PO DAILY 09/09/20 [History] Bacitracin [Bacitracin Oint 1 GM] 1 dose TOP DAILY packet 09/23/20 [Rx] Digoxin [Lanoxin] 0.125 mg PO DAILY #90 09/23/20 [Rx] Melatonin 1 tab PO BEDTIME PRN 09/23/20 [History] Melatonin 10 mg PO BEDTIME cap 09/23/20 [Rx] Non-Formulary Medication [NF Drug] 0.75 each PO TID each 09/23/20 [Rx] Propafenone HCl 225 mg PO TID #180 09/23/20 [Rx] atorvaSTATin [Lipitor] 40 mg PO DAILY #90 09/23/20 [Rx] lisinopriL [Lisinopril] 5 mg PO DAILY #90 09/23/20 [Rx] traZODone 50 mg PO BEDTIME #30 tablet 09/23/20 [Rx] Past Medical History HEENT History: Reports: Hard of Hearing Cardiovascular History: Reports: Afib, High Cholesterol, Stents Genitourinary History: Reports: Other (See Below) Other Genitourinary History: states that his "flow is slow" and that he has to get up at night Musculoskeletal History: Reports: Osteoarthritis Other Musculoskeletal History: recent knee replacement Neurological History: Reports: CVA, Vertigo Psychiatric History: Reports: Other (See Below) Other 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 Other Endocrine/Metabolic History: takes metformin Dermatologic History: Reports: Other (See Below) Other Dermatologic History: Hx of basal cell carcinoma - Past Surgical History Head Surgeries/Procedures: Reports: Craniotomy, Shunt Other HEENT Surgeries/Procedures: hx of fluid in his ears saw a provider in [place] 3 yrs ago Neurological Surgical History: Reports: Other (See Below) Other Neurological Surgeries/Procedures: craniotomy Social & Family History - Family History Family Medical History: Unobtainable Oncologic: Reports: Colon - Caffeine Use Caffeine Use: Reports: Coffee Caffeine Use Comment: 1 cup daily - Recreational Drug Use Recreational Drug Use: No ED ROS GENERAL - Review of Systems Review Of Systems: Comprehensive ROS is negative, except as noted in HPI. Respiratory: Reports: Other (chest pain on the Rt after falling.) Musculoskeletal: Reports: Other (C/O Lt shoulder pain with movement.) Skin: Reports: Other (Superficial abrasions to his face, forehead, and nose.) ED EXAM, GENERAL - Physical Exam Exam: See Below Nose: Other (Abrasion to the bridge of his nose.) Head: Other (Abrasions to forehead.) Respiratory/Chest: Other (Mild chest wall pain with palpation on the Rt. Pt can take a deep breath with mils pain.) Extremities: Other (Mild pain of the Lt shoulder with movement. Skin is intact.) Course - Vital Signs Last Recorded V/S: Last Vital Signs Temp 97.2 F 09/29/20 15:21 Pulse 130 H 09/29/20 15:21 Resp 16 09/29/20 15:21 BP 132/84 09/29/20 15:21 Pulse Ox 98 09/29/20 15:21 - Orders/Labs/Meds Orders: Active Orders 24 hr Category Date Time Status Admission Diagnosis [ADT] Routine ADT 09/29/20 18:03 Active EKG Documentation Completion [RC] ASDIRECTED Care 09/29/20 15:49 Active Shoulder Comp Lt [CR] Stat Exams 09/29/20 15:37 Taken CORONAVIRUS COVID-19 RAPID [MOLEC] Routine Lab 09/29/20 17:39 Ordered UA W/MICROSCOPIC [URIN] Stat Lab 09/29/20 15:38 Ordered Labs: Laboratory Tests 09/29/20 09/29/20 Range/Units 15:47 15:47 WBC 10.7 D (4.0-11.0) K/uL RBC 3.98 L (4.50-6.50) M/uL Hgb 13.4 (13.0-18.0) g/dL Hct 39.0 L (40.0-54.0) % MCV 98 H (76-96) fL MCH 33.7 H (27.0-32.0) pg MCHC 34.4 (31.0-35.0) g/dL RDW 14.8 (11.0-16.0) % Plt Count 270 (150-400) K/uL MPV 10.7 H (6.0-10.0) fL Neut % (Auto) 60.1 (45.0-70.0) % Lymph % (Auto) 25.8 (20.0-40.0) % [place] % (Auto) 12.6 H (3.0-10.0) % Eos % (Auto) 1.1 (1.0-5.0) % Baso % (Auto) 0.4 (0.0-0.5) % Neut # (Auto) 6.41 (2.00-7.50) K/uL Lymph # (Auto) 2.76 (1.50-4.00) K/uL [place] # (Auto) 1.35 H (0.20-0.80) K/uL Eos # (Auto) 0.12 (0.04-0.40) K/uL Baso # (Auto) 0.04 (0.02-0.10) K/uL Sodium 146 H (136-145) mmol/L Potassium 3.2 L (3.5-5.1) mmol/L Chloride 106 (98-107) mmol/L Carbon Dioxide 26.0 (21.0-32.0) mmol/L Anion Gap 17.2 H (5.0-15.0) mmol/L BUN 27 H D (8-26) mg/dL Creatinine 1.44 H D (0.70-1.30) mg/dL Est Cr Clr Drug Dosing TNP Estimated GFR (MDRD) 47 L (>60) MLS/MIN BUN/Creatinine Ratio 18.8 (6-25) Glucose 159 H (74-100) mg/dL Calcium 8.8 (8.5-10.1) mg/dL - Radiology Interpretation Free Text/Narrative:: x-ray of the Lt ribs, PA chest, and Rt shoulder obtained. No obvious fracture noted. Departure - Departure Time of Disposition: 18:00 Disposition: DC/Tfer to Hospice-Med Fac 51 Condition: Poor Clinical Impression: Declining functional status - Discharge Information *PRESCRIPTION DRUG MONITORING PROGRAM REVIEWED*: Yes *COPY OF PRESCRIPTION DRUG MONITORING REPORT IN PATIENT HILARIO: Yes Referrals: PCP,None [Primary Care Provider] - Care Plan Goals: Comfort care. Pain control measures as needed. Sepsis Event Note (ED) - Evaluation Sepsis Screening Result: No Definite Risk - Focused Exam Vital Signs: Vital Signs Temp Pulse Resp BP Pulse Ox 09/29/20 15:21 97.2 F 130 H 16 132/84 98 - My Orders Last 24 Hours: My Active Orders 09/29/20 15:37 Shoulder Comp Lt [CR] Stat 09/29/20 15:38 UA W/MICROSCOPIC [URIN] Stat 09/29/20 15:49 EKG Documentation Completion [RC] ASDIRECTED 09/29/20 17:39 CORONAVIRUS COVID-19 RAPID [MOLEC] Routine 09/29/20 18:03 Admission Diagnosis [ADT] Routine - Assessment/Plan Last 24 Hours: My Active Orders 09/29/20 15:37 Shoulder Comp Lt [CR] Stat 09/29/20 15:38 UA W/MICROSCOPIC [URIN] Stat 09/29/20 15:49 EKG Documentation Completion [RC] ASDIRECTED 09/29/20 17:39 CORONAVIRUS COVID-19 RAPID [MOLEC] Routine 09/29/20 18:03 Admission Diagnosis [ADT] Routine
[2020-09-29] MEDS ORDERED: LORazepam 0.5 MG Tab PO PRN (18:45)
--- NOTE | 2020-09-29 19:39 | CR ---
CLINICAL DATA: Falls. LEFT SHOULDER, 29 SEPTEMBER 2020 Comparison is made to a prior exam dated 05 April 2015. There are severe osteoarthritic changes of the glenohumeral joint with inferior spurring of the humeral head. There has been significant progression from the prior study. There are osteoarthritic changes of the AC joint. No acute abnormalities. No focal lytic or blastic bone lesions. Job: [id number] [facility]
[2020-09-29] MEDS: Morphine Oral Concentrate 20 MG/ML 30 ML Bottle PO PRN (19:44)
[2020-09-29] MEDS: LORazepam 2 MG/ML SDV IM PRN (20:17)
--- NOTE | 2020-09-29 23:33 | ADMIT ---
This is an 85-year-old male who was admitted through the ER for respite care measures. He was previously a swing bed patient here after sustaining a stroke several weeks ago. He was transferred out and had a craniotomy. The patient's son and daughter are here today and they tell me that his condition seemed hopeful for a day or 2 after surgery, but he has been declining steadily since. He was discharged home per their request several days ago and it has not been going well at home. In fact, they tell me it has been terrible. He has been confused, aggressive. He has been up and about falling at least 4 times that they know of. He was worked up in the ER today. There are no rib fractures and lab work shows mild dehydration and a potassium level of 3.2. The family very much wants to talk about the appropriate care for their father. They know he does not want to live like this. He has been saying it when he is more lucid and they are wondering about just doing comfort care measures. I had a long conversation with the son and daughter today here as well as other nursing staff, and it was mutually agreed that he would be admitted for comfort cares and pain control. The patient will be given an order for morphine to be used p.r.n. low dose 2.5 mg and there will not be any aggressive measures or IV medications given. The patient is mostly confused while he was in the emergency room. He was friendly and would answer questions, but not very coherently. Vital signs today upon admission, temperature 97.2, pulse is 130, blood pressure 132/84, respirations 16, and oxygen saturation 98%. CRS/MODL /[id number]
== END 2020-09-29 18:01 | disposition other institution (70) | DRG 951 ==
LOC: LB.ED 14:57 → LB.MS 18:00
PROVIDERS: ADMIT Physician Assistant; ATTEND Physician Assistant
DX: Z51.5 Encounter for palliative care (principal); R41.81 Age-related cognitive decline; E86.0 Dehydration; H91.90 Unspecified hearing loss, unspecified ear; I48.91 Unspecified atrial fibrillation; E78.00 Pure hypercholesterolemia, unspecified; Z96.659 Presence of unspecified artificial knee joint; R53.81 Other malaise; Z20.822 Contact with and (suspected) exposure to COVID-19; M19.90 Unspecified osteoarthritis, unspecified site; Z86.73 Personal history of transient ischemic attack (TIA), and cerebral infarction without residual deficits; Z75.5 Holiday relief care; Z95.5 Presence of coronary angioplasty implant and graft; Z79.82 Long term (current) use of aspirin; Z79.899 Other long term (current) drug therapy; I69.398 Other sequelae of cerebral infarction; Z85.828 Personal history of other malignant neoplasm of skin
CPT/HCPCS: 36415; 71101-RT; 73030-LT; 80048; 85025; 93005; 99285-25; A9270-GY; J2060; U0002

== ENCOUNTER 2020-09-29 17:45 | Inpatient (IN) | payer SELFPAY ==
[2020-09-30] MEDS ORDERED: LORazepam 2 MG/ML SDV IM PRN (11:32)
[2020-09-30] MEDS: Morphine Oral Concentrate 20 MG/ML 30 ML Bottle PO PRN ×2 (11:35→20:50)
[2020-09-30] MEDS: LORazepam 0.5 MG Tab PO PRN ×2 (15:34→23:39)
[2020-10-01] MEDS: Morphine Oral Concentrate 20 MG/ML 30 ML Bottle PO PRN ×4 (02:42→23:30)
[2020-10-01] MEDS: LORazepam 0.5 MG Tab PO PRN (19:44)
[2020-10-02] MEDS: Morphine Oral Concentrate 20 MG/ML 30 ML Bottle PO PRN ×3 (05:15→20:28)
[2020-10-02] MEDS: LORazepam 0.5 MG Tab PO PRN (18:15)
[2020-10-03] MEDS: Morphine Oral Concentrate 20 MG/ML 30 ML Bottle PO PRN ×3 (01:06→20:32)
[2020-10-03] MEDS: LORazepam 0.5 MG Tab PO PRN (02:13)
[2020-10-03] MEDS ORDERED: Acetaminophen 325 MG Tab PO PRN (18:49)
[2020-10-04] MEDS: Morphine Oral Concentrate 20 MG/ML 30 ML Bottle PO PRN ×2 (00:57→08:30)
[2020-10-04] MEDS: LORazepam 0.5 MG Tab PO PRN (02:54)
[2020-10-04 08:44] VITALS: BP 127/114; PULSE 73
--- NOTE | 2020-10-04 10:15 | PCM.HP.2 ---
H&P History of Present Illness - General Date of Service: 10/04/20 Admit Problem/Dx: Admission Diagnosis/Problem Admission Diagnosis/Problem Confusion Source of Information: Patient, Old Records History Limitations: Reports: Altered Mental Status - History of Present Illness Initial Comments - Free Text/Narative: patient was transferred from RESPITE bed to swing for IV meds and better managing pain and agitation. 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 Is S/P craniotomy. Have failed PT/OT evaluation. Family wants to stop all his meds, and switch him to comfort care. [facility] - unable to take him for staffing and safety reasons. Have failed outpatient management trial at home - fell multiple times and family couldn't take care of him due to complexity of medical situation. still c/o headache and back pain - unable to take PO. So IV will be started for IV medications. Right Pain Score (Numeric/FACES): 2 - Related Data Allergies/Adverse Reactions: Allergies Allergy/AdvReac Type Severity Reaction Status Date / Time No Known Allergies Allergy Verified 10/04/20 10:33 Home Medications: Home Meds Acetaminophen 650 mg PO Q6H PRN 10/04/20 [History] LORazepam [Ativan] 1 mg PO Q8H PRN 10/04/20 [History] LORazepam [Lorazepam] 0.5 mg PO Q8H PRN 10/04/20 [History] Meclizine [Antivert] 25 mg PO DAILY 10/04/20 [History] Morphine [Morphine 20 MG/ML Soln] 2.5 mg PO Q4H PRN 10/04/20 [History] Past Medical History HEENT History: Reports: Hard of Hearing Cardiovascular History: Reports: Afib, High Cholesterol, Stents Genitourinary History: Reports: Other (See Below) Other Genitourinary History: states that his "flow is slow" and that he has to get up at night Musculoskeletal History: Reports: Osteoarthritis Other Musculoskeletal History: recent knee replacement Neurological History: Reports: Brain Injury, CVA, Vertigo, Other (See Below) Other Neuro History: craniotomy Psychiatric History: Reports: Anxiety, Other (See Below) Other 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. combative and resistive with cares upon admission 09/29/20 Other Endocrine/Metabolic History: takes metformin, has not taken any meds in 1+ week Oncologic (Cancer) History: Reports: Basal Cell Carcinoma Dermatologic History: Reports: Other (See Below) Other Dermatologic History: Hx of basal cell carcinoma - Past Surgical History Head Surgeries/Procedures: Reports: Craniotomy, Shunt Other HEENT Surgeries/Procedures: hx of fluid in his ears saw a provider in [place] 3 yrs ago Neurological Surgical History: Reports: Other (See Below) Other Neurological Surgeries/Procedures: craniotomy Dermatological Surgical History: Reports: None Social & Family History - Family History Family Medical History: Unobtainable Oncologic: Reports: Colon - Caffeine Use Caffeine Use: Reports: Coffee Caffeine Use Comment: 1 cup daily H&P Review of Systems - Review of Systems: Review Of Systems: Unable To Obtain Reason Not Obtained: due to patient mental status Exam - Exam Exam: See Below - Vital Signs Vital Signs: Last Vital Signs Temp 35.7 C L 10/04/20 08:00 Pulse 73 10/04/20 08:00 Resp 18 10/04/20 08:00 BP 127/114 H 10/04/20 08:00 Pulse Ox 97 10/04/20 08:00 Weight: 76.742 kg - Exam Quality Assessment: No: Supplemental Oxygen General: Obtunded, Other (sleeping) HEENT: PERRLA Lungs: Clear to Auscultation, Normal Respiratory Effort Cardiovascular: Regular Rate, Regular Rhythm GI/Abdominal Exam: Normal Bowel Sounds, Soft, Non-Tender Extremities: Normal Inspection Neuro Extensive - Mental Status: Disorientation to Person, Disorientation to Place, Disorientation to Time, Inattentive, Slow Response to Commands Neuro Extensive - Motor, Sensory, Reflexes: Abnormal Gait, Ataxia Psychiatric: Labile Mood, Depressed, Agitated Sepsis Event Note - Evaluation Sepsis Screening Result: No Definite Risk - Focused Exam Vital Signs: Vital Signs Temp Pulse Resp BP Pulse Ox 10/04/20 08:00 35.7 C L 73 18 127/114 H 97 - Problem List (1) Declining functional status SNOMED Code(s): 747182523202168 ICD Code: R53.81 - OTHER MALAISE Status: Acute Priority: High Current Visit: No Problem List Initiated/Reviewed/Updated: Yes Orders Last 24hrs: Active Orders 24 hr Category Date Time Status Patient Status [ADT] Routine ADT 10/04/20 10:10 Ordered Regular Diet [DIET] Diet 10/04/20 Lunch Ordered Acetaminophen [TylenoL] Med 10/03/20 18:49 Active 650 mg PO Q6H PRN Meclizine [Antivert] Med 10/04/20 10:15 Ordered 25 mg PO DAILY Medication Orders Acetaminophen (Acetaminophen 325 Mg Tab) 650 mg PO Q6H PRN PRN Reason: Pain (mild 1-3) Lorazepam (Lorazepam 0.5 Mg Tab) 0.5 mg PO Q8H PRN PRN Reason: Agitation Last Admin: 10/04/20 02:54 Dose: 0.5 mg Documented by: Admin: 10/03/20 02:13 Dose: 0.5 mg Documented by: Admin: 10/02/20 18:15 Dose: 0.5 mg Documented by: Admin: 10/01/20 19:44 Dose: 0.5 mg Documented by: Admin: 09/30/20 23:39 Dose: 0.5 mg Documented by: Admin: 09/30/20 15:34 Dose: 0.5 mg Documented by: EVENS Lorazepam (Lorazepam 2 Mg/Ml Sdv) 1 mg IM Q8H PRN PRN Reason: Agitation Meclizine HCl (Meclizine 25 Mg Tab.Chew) 25 mg PO DAILY KARLA Morphine Sulfate (Morphine Oral Concentrate 20 Mg/Ml 30 Ml Bottle) 2.5 mg PO Q4H PRN PRN Reason: Pain Last Admin: 10/04/20 08:30 Dose: 0.125 ml Documented by: Admin: 10/04/20 00:57 Dose: 0.125 ml Documented by: Admin: 10/03/20 20:32 Dose: 0.125 ml Documented by: Admin: 10/03/20 11:32 Dose: 0.125 ml Documented by: Admin: 10/03/20 01:06 Dose: 0.125 ml Documented by: Admin: 10/02/20 20:28 Dose: 0.125 ml Documented by: Admin: 10/02/20 13:00 Dose: 0.125 ml Documented by: Admin: 10/02/20 05:15 Dose: 0.125 ml Documented by: Admin: 10/01/20 23:30 Dose: 0.125 ml Documented by: Admin: 10/01/20 19:45 Dose: 0.125 ml Documented by: Admin: 10/01/20 14:45 Dose: 0.125 ml Documented by: Admin: 10/01/20 02:42 Dose: 0.125 ml Documented by: Admin: 09/30/20 20:50 Dose: 0.125 ml Documented by: Admin: 09/30/20 11:35 Dose: 0.125 ml Documented by: EVENS Assessment/Plan Comment:: switch to swing bed IV Ativan as needed, and morphine PO for comfort encourage PO intake meclizine PO for severe vertigo comfort care status - Mortality Measure Prognosis:: Poor
[2020-10-04] MEDS ORDERED: Ondansetron 4 MG Tab.DIS ONE (11:06)
== END 2020-10-04 10:30 | disposition swing bed (61) | DRG 951 ==
LOC: LB.MS 17:45
PROVIDERS: ADMIT Physician Assistant; ATTEND Physician Assistant
DX: Z51.5 Encounter for palliative care (principal); R53.81 Other malaise; H91.90 Unspecified hearing loss, unspecified ear; I48.91 Unspecified atrial fibrillation; E78.00 Pure hypercholesterolemia, unspecified; M19.90 Unspecified osteoarthritis, unspecified site; F41.9 Anxiety disorder, unspecified; R29.6 Repeated falls; E86.0 Dehydration; Z79.899 Other long term (current) drug therapy; Z95.5 Presence of coronary angioplasty implant and graft; Z86.73 Personal history of transient ischemic attack (TIA), and cerebral infarction without residual deficits; Z85.828 Personal history of other malignant neoplasm of skin; Z98.890 Other specified postprocedural states
CPT/HCPCS: 81001; A9270-GY

== ENCOUNTER 2020-10-04 09:47 | Inpatient (IN) | payer MEDICARE, BC ==
[2020-10-04] MEDS ORDERED: Acetaminophen 325 MG Tab PO PRN (10:48)
[2020-10-04] MEDS ORDERED: Morphine Solution 10 MG/5 ML ML 100 ML Bottle PO PRN (10:49)
[2020-10-04] MEDS ORDERED: Ondansetron 4 MG Tab.DIS PO ONE (11:12)
[2020-10-04] MEDS ORDERED: Tuberculin, PPD 5 Units/0.1 ML 1 ML MDV IDERM ONE (14:01)
[2020-10-04] MEDS: Morphine Oral Concentrate 20 MG/ML 30 ML Bottle PO PRN ×2 (15:37→23:05)
[2020-10-04] MEDS: LORazepam 2 MG/ML SDV IVPUSH PRN (18:05)
[2020-10-05] MEDS: Morphine Oral Concentrate 20 MG/ML 30 ML Bottle PO PRN ×4 (07:35→22:26)
[2020-10-05] MEDS: LORazepam 2 MG/ML SDV IVPUSH PRN (09:36)
[2020-10-06] MEDS: LORazepam 2 MG/ML SDV IVPUSH PRN ×3 (01:45→18:03)
[2020-10-06] MEDS: Morphine Oral Concentrate 20 MG/ML 30 ML Bottle PO PRN (07:39)
[2020-10-06 07:50] VITALS: BP 160/100
--- NOTE | 2020-10-06 09:51 | PCM.HP.2 ---
H&P History of Present Illness - General Date of Service: 10/05/20 Admit Problem/Dx: Admission Diagnosis/Problem Admission Diagnosis/Problem Physical deconditioning Source of Information: Family, Old Records, RN History Limitations: Reports: Altered Mental Status - Related Data Allergies/Adverse Reactions: Allergies Allergy/AdvReac Type Severity Reaction Status Date / Time No Known Allergies Allergy Verified 10/04/20 10:33 Home Medications: Home Meds Acetaminophen 650 mg PO Q6H PRN 10/04/20 [History] LORazepam [Ativan] 1 mg IM Q8H PRN 10/04/20 [History] LORazepam [Lorazepam] 0.5 mg PO Q8H PRN 10/04/20 [History] Meclizine [Antivert] 25 mg PO DAILY 10/04/20 [History] Morphine [Morphine 20 MG/ML Soln] 2.5 mg PO Q4H PRN 10/04/20 [History] Past Medical History HEENT History: Reports: Hard of Hearing Cardiovascular History: Reports: Afib, High Cholesterol, Stents Genitourinary History: Reports: Other (See Below) Other Genitourinary History: states that his "flow is slow" and that he has to get up at night Musculoskeletal History: Reports: Osteoarthritis Other Musculoskeletal History: recent knee replacement Neurological History: Reports: Brain Injury, CVA, Vertigo, Other (See Below) Other Neuro History: craniotomy Psychiatric History: Reports: Anxiety, Other (See Below) Other 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. combative and resistive with cares upon admission 09/29/20 Other Endocrine/Metabolic History: takes metformin, has not taken any meds in 1+ week Dermatologic History: Reports: Other (See Below) Other Dermatologic History: Hx of basal cell carcinoma - Past Surgical History Head Surgeries/Procedures: Reports: Craniotomy, Shunt Other HEENT Surgeries/Procedures: hx of fluid in his ears saw a provider in [place] 3 yrs ago Neurological Surgical History: Reports: Other (See Below) Other Neurological Surgeries/Procedures: craniotomy Dermatological Surgical History: Reports: None Social & Family History - Family History Family Medical History: Unobtainable Oncologic: Reports: Colon - Caffeine Use Caffeine Use: Reports: Coffee Caffeine Use Comment: 1 cup daily Exam - Vital Signs Vital Signs: Last Vital Signs Temp 35.9 C L 10/06/20 07:48 Pulse 123 H 10/06/20 07:48 Resp 14 10/06/20 07:48 BP 160/100 H 10/06/20 07:48 Pulse Ox 99 10/06/20 07:48 Weight: 76.742 kg Sepsis Event Note - Evaluation Sepsis Screening Result: No Definite Risk - Focused Exam Vital Signs: Vital Signs Temp Pulse Resp BP Pulse Ox 10/06/20 07:48 35.9 C L 123 H 14 160/100 H 99 Orders Last 24hrs: Active Orders 24 hr Category Date Time Status Morphine Med 10/06/20 09:49 Ordered 2 mg IVPUSH Q4H PRN fentaNYL [Duragesic] Med 10/06/20 10:00 Ordered 12 mcg TRDERM Q72H Medication Orders Acetaminophen (Acetaminophen 325 Mg Tab) 650 mg PO Q4H PRN PRN Reason: analgesia/fever Fentanyl (Fentanyl 12 Mcg/Hr Transdermal Patch) 12 mcg TRDERM Q72H KARLA Lorazepam (Lorazepam 2 Mg/Ml Sdv) 0.5 mg IVPUSH Q6H PRN PRN Reason: Agitation Last Admin: 10/06/20 01:45 Dose: 0.5 mg Documented by: Admin: 10/05/20 09:36 Dose: 0.5 mg Documented by: Admin: 10/04/20 18:05 Dose: 0.5 mg Documented by: EVENS Meclizine HCl (Meclizine 25 Mg Tab.Chew) 25 mg PO DAILY KARLA Last Admin: 10/06/20 08:15 Dose: Not Given Documented by: Admin: 10/05/20 10:44 Dose: 25 mg Documented by: YONI Morphine Sulfate (Morphine 2 Mg/Ml Syringe) 2 mg IVPUSH Q4H PRN PRN Reason: Pain (moderate 4-6)
[2020-10-06] MEDS ORDERED: fentaNYL 12 MCG/HR Transdermal Patch TRDERM SCH (10:00)
[2020-10-06] MEDS: Morphine 2 MG/ML SYRINGE IVPUSH PRN ×3 (11:55→22:30)
[2020-10-06] MEDS: Sodium Chloride 0.9% 10 ML Syringe FLUSH PRN (20:00)
[2020-10-06] MEDS ORDERED: Acetaminophen 650 MG Supp RECTAL PRN (20:06)
[2020-10-07] MEDS: Morphine 2 MG/ML SYRINGE IVPUSH PRN ×4 (03:09→19:37)
[2020-10-07 03:11] VITALS: PULSE 120
[2020-10-07] MEDS: Sodium Chloride 0.9% 10 ML Syringe FLUSH PRN ×4 (08:06→17:59)
[2020-10-07] MEDS: LORazepam 2 MG/ML SDV IVPUSH PRN ×2 (11:42→17:50)
[2020-10-07] MEDS ORDERED: Scopolamine 1.5 MG Transdermal Patch TRDERM PRN (19:23)
[2020-10-07] MEDS ORDERED: Scopolamine 1.5 MG Transdermal Patch ONE (19:33)
[2020-10-07] MEDS ORDERED: LORazepam 2 MG/ML SDV IVPUSH ONE (20:30)
[2020-10-08] MEDS ORDERED: Albuterol/Ipratropium 3.0-0.5 MG/3 ML Neb Soln ONE (11:26)
--- NOTE | 2020-10-08 18:53 | PCM.DCSUM1 ---
Discharge Summary - Hospital Course Brief History: patient with a recent history of major cerebellar stroke s/p craniotomy - who was trasnferred to swing bed for end of life comfort. Poor po intake and unable to move around independtly. Family have met with the drug abuse social worker and decided on comfort measures due to poor prognosis of any recovery. 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 Ativan for anxiety as needed. headache managed with Tylenol and morphine. Due to poor oral intake and inability to swallow meds - IV route was necessary. Patient was refusing any oral intake during his stay. Family decided on comfort measures for him. Patient peacefully 10/08 at 6:30am family were notified who came and visited him for a final goodbye. - Discharge Plan *PRESCRIPTION DRUG MONITORING PROGRAM REVIEWED*: Not Applicable *COPY OF PRESCRIPTION DRUG MONITORING REPORT IN PATIENT HILARIO: Not Applicable Home Medications: Home Meds Acetaminophen 650 mg PO Q6H PRN 10/04/20 [History] LORazepam [Ativan] 1 mg IM Q8H PRN 10/04/20 [History] LORazepam [Lorazepam] 0.5 mg PO Q8H PRN 10/04/20 [History] Meclizine [Antivert] 25 mg PO DAILY 10/04/20 [History] Morphine [Morphine 20 MG/ML Soln] 2.5 mg PO Q4H PRN 10/04/20 [History] - Discharge Summary/Plan Comment DC Time >30 min.: No - General Info Date of Service: 10/08/20 - Review of Systems Systems Review Comment: unable to obtain due to clinical status - Patient Data Vitals - Most Recent: Last Vital Signs Temp 36.2 C 10/07/20 03:16 Pulse 120 H 10/07/20 03:08 Resp 12 10/07/20 03:08 BP 160/100 H 10/06/20 07:48 Pulse Ox 99 10/06/20 07:48 Weight - Most Recent: 76.742 kg Med Orders - Current: Current Medications Acetaminophen (Acetaminophen 650 Mg Supp) 650 mg RECTAL Q4H PRN PRN Reason: Pain or Fever Fentanyl (Fentanyl 12 Mcg/Hr Transdermal Patch) 12 mcg TRDERM Q72H KARLA Last Admin: 10/06/20 10:14 Dose: 12 mcg Documented by: Lorazepam (Lorazepam 2 Mg/Ml Sdv) 0.5 mg IVPUSH Q6H PRN PRN Reason: Agitation Last Admin: 10/07/20 17:50 Dose: 0.5 mg Documented by: Morphine Sulfate (Morphine 2 Mg/Ml Syringe) 2 mg IVPUSH Q4H PRN PRN Reason: Pain (moderate 4-6) Last Admin: 10/07/20 19:37 Dose: 2 mg Documented by: Scopolamine (Scopolamine 1.5 Mg Transdermal Patch) 1.5 mg TRDERM Q72H PRN PRN Reason: Cough Last Admin: 10/07/20 19:37 Dose: 1.5 mg Documented by: Sodium Chloride (Sodium Chloride 0.9% 10 Ml Syringe) 10 ml FLUSH ASDIRECTED PRN PRN Reason: Keep Vein Open Last Admin: 10/07/20 17:59 Dose: 10 ml Documented by: Discontinued Medications Acetaminophen (Acetaminophen 325 Mg Tab) 650 mg PO Q4H PRN PRN Reason: analgesia/fever Albuterol/Ipratropium (Albuterol/Ipratropium 3.0-0.5 Mg/3 Ml Neb Soln) Confirm Administered Dose 3 ml .ROUTE .STK-MED ONE Stop: 10/08/20 11:27 Lorazepam (Lorazepam 2 Mg/Ml Sdv) 0.5 mg IVPUSH ONETIME ONE Stop: 10/07/20 20:31 Last Admin: 10/07/20 20:33 Dose: 0.5 mg Documented by: Meclizine HCl (Meclizine 25 Mg Tab.Chew) 25 mg PO DAILY [facility] Last Admin: 10/06/20 08:15 Dose: Not Given Documented by: Morphine Sulfate (Morphine Oral Concentrate 20 Mg/Ml 30 Ml Bottle) 2.5 mg PO Q6H PRN PRN Reason: COMFORT CARES Last Admin: 10/05/20 07:35 Dose: 0.125 ml Documented by: Morphine Sulfate (Morphine Oral Concentrate 20 Mg/Ml 30 Ml Bottle) 2.5 mg PO Q4H PRN PRN Reason: COMFORT CARES Last Admin: 10/06/20 07:39 Dose: 0.125 ml Documented by: Ondansetron HCl (Ondansetron 4 Mg Tab.Dis) 4 mg PO ONETIME ONE Stop: 10/04/20 11:13 Last Admin: 10/04/20 11:13 Dose: 4 mg Documented by: Scopolamine (Scopolamine 1.5 Mg Transdermal Patch) Confirm Administered Dose 1.5 mg .ROUTE .STK-MED ONE Stop: 10/07/20 19:34 Last Admin: 10/07/20 20:42 Dose: Not Given Documented by: Tuberculin PPD (Tuberculin, Ppd 5 Units/0.1 Ml 1 Ml Mdv) 5 unit IDERM ONETIME ONE Stop: 10/04/20 14:02 Last Admin: 10/04/20 16:35 Dose: 5 unit Documented by: - Exam General: Reports: Obtunded HEENT: Reports: Other (non reactive ) Cardiovascular: Reports: Other (pulseless) Psy/Mental Status: Reports: Other
== END 2020-10-08 06:17 | disposition expired | DRG 951 ==
LOC: LB.MS 10:18
PROVIDERS: ADMIT Surgery; ATTEND Surgery
DX: Z51.5 Encounter for palliative care (principal); R53.81 Other malaise; R45.1 Restlessness and agitation; H91.90 Unspecified hearing loss, unspecified ear; E78.00 Pure hypercholesterolemia, unspecified; I48.91 Unspecified atrial fibrillation; M19.90 Unspecified osteoarthritis, unspecified site; M54.9 Dorsalgia, unspecified; R42 Dizziness and giddiness; Z96.659 Presence of unspecified artificial knee joint; F41.9 Anxiety disorder, unspecified; R29.6 Repeated falls; R51.9 Headache, unspecified; Z86.73 Personal history of transient ischemic attack (TIA), and cerebral infarction without residual deficits; Z79.899 Other long term (current) drug therapy; Z95.5 Presence of coronary angioplasty implant and graft; Z85.828 Personal history of other malignant neoplasm of skin; Z98.890 Other specified postprocedural states; Z98.2 Presence of cerebrospinal fluid drainage device; Z80.0 Family history of malignant neoplasm of digestive organs
CPT/HCPCS: 86580; A9270-GY; J2060; J2270